=== PATIENT | female | born 1945 | race Caucasian/White ===

== ENCOUNTER 2024-10-05 09:30 | Outpatient (CLI) | payer MEDICARE, SELFPAY ==
--- NOTE | ~2024-10-05 | XR_ITS ---
EXAM/PROCEDURE: XR chest 2V - 10/05/2024 11:30 CDT HISTORY: 79 years old Female with M96.1 - Postlaminectomy syndrome, not elsewhere classified TECHNIQUE: Two view(s) of the chest. COMPARISON: None available. FINDINGS: LUNGS/ PLEURA: Mild vascular congestion, bilateral interstitial and alveolar opacities. HEART/ MEDIASTINUM: Mild cardiomegaly. BONES: No acute osseous abnormality. OTHER: Visualized upper abdomen is unremarkable. IMPRESSION: Mild CHF. Superimposed infection cannot be excluded. Short-term follow-up chest radiograph is recomme nded after appropriate therapy. Reviewed, dictated and finalized at location A. IMPRESSION: Mild CHF. Superimposed infection cannot be excluded. Short-term follow-up chest radiograph is recommended after appropriate therapy.
--- OUTSIDE RECORDS SUMMARY | 2024-10-05 09:40 | XMS_ITS | Referral Summary ---
Author Organization [facility] at [facility] Address [address] [place] [address] Care Team Providers Care Knife Setter Name Role Phone Rosmery Mai MD Primary Care Provider [phone] Encounters Date Type Department Care Team Description 08/12/2024 Telephone [facility] Ophthalmology [address] [place] [phone] Nahid Flores MD 08/12/2024 9:00 AM CDT Office Visit [facility] Ophthalmology [address] [place] [phone] Nahid Flores MD Dacryocystitis, acute, left (Primary Dx) 07/15/2024 1:30 PM CDT Office Visit [facility] Ophthalmology [address] [place] [phone] Supriya Ulloa MD Dacryocystitis, acute, left (Primary Dx) 07/07/2024 7:30 AM CDT - 07/07/2024 9:15 AM CDT Surgery [facility] [address] [place] [phone] Nahid Flores MD DACRYOCYSTORHINOSTOMY 07/07/2024 7:24 AM CDT Anesthesia Event [facility]) [address] [place] [phone] Stefan Byers MD McGowan, Jessica Lynn, NP 07/07/2024 5:33 AM CDT - 07/07/2024 10:04 AM CDT Hospital Encounter [facility] Operating Room [facility] ([facility]) [address] [place] [address] Nahid Flores MD Dacryocystitis, acute, left [H04.322] (Primary Dx) Discharge Disposition: Discharge to home or self care from Last 3 Months Allergies Active Allergy Reactions Criticality Noted Date Comments Enalapril Unknown Remote history, not sure of reaction Lisinopril Cough,Shortness of breath High 02/17/2018 Breathing Difficulty Morphine Hives,Itching Medium 01/03/2016 Hives Prednisone Headache Low Will take if absolutely must Rivaroxaban GI bleeding Low 04/05/2016 Medications albuterol HFA (PROVENTIL HFA,VENTOLIN HFA,PROAIR HFA) 90 mcg/actuation inhalerIndication s:Chronic Obstructive Pulmonary Disease Inhale 1 puff as needed for wheezing or shortness of breath 4 Active atenoloL (TENORMIN) 25 mg tabletIndications :hypertension Take 1 tablet (25 mg total) by mouth 2 (two) times a day Active atorvastatin (LIPITOR) 40 mg tabletIndications :hyperlipidemia Take 1 tablet (40 mg total) by mouth nightly 5 Active bumetanide (BUMEX) 1 mg tabletIndications :Renal Disease with Edema Take 1 tablet (1 mg total) by mouth every other day Active cholestyramine (QUESTRAN) 4 gram packetIndications :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 Take 1 packet (4 g total) by mouth every morning 4 025 Active cyanocobalamin (Vitamin B-12) 100 mcg tabletIndications :Prevention of Vitamin B12 Deficiency Take 10 tablets (1,000 mcg total) by mouth every morning 1 Active empagliflozin (JARDIANCE) 10 mg tabletIndications :Chronic Kidney Disease Take 1 tablet (10 mg total) by mouth every morning 4 Active fluticasone propionate (FLONASE) 50 mcg/actuation nasal sprayIndications: Allergic Rhinitis Administer 1 spray into each nostril every morning Active Trelegy Ellipta 100-62.5-25 mcg inhalerIndication s:Bronchospasm Prevention with COPD Inhale 1 puff every morning 5 Active gabapentin (NEURONTIN) 100 mg capsuleIndication s:Neuropathic Pain Take 1 capsule (100 mg total) by mouth 2 (two) times a day Active HYDROcodone-aceta minophen (NORCO) 5-325 mg per tabletIndications :Pain Take 1 tablet by mouth 2 (two) times a day as needed for pain for pain Active losartan (COZAAR) 50 mg tabletIndications :chronic kidney disease with albuminuria,hyper tension Take 1.5 tablets (75 mg total) by mouth every morning 5 Active montelukast (SINGULAIR) 10 mg tabletIndications :Seasonal Allergic Rhinitis Take 1 tablet (10 mg total) by mouth nightly 5 Active rOPINIRole (REQUIP) 2 mg tabletIndications :Restless Legs Syndrome Take 1 tablet (2 mg total) by mouth 2 (two) times a day 4 Active warfarin (COUMADIN) 3 mg tabletIndications :VTE Prophylaxis,atria l fibrillation Take 1.5 tablets (4.5 mg total) by mouth every evening 4 Active cholecalciferol, vitamin D3, (VITAMIN D3 ORAL)Indications: supplement Take 1 tablet by mouth every other day Active multivitamin tabletIndications :Vitamin Deficiency Prevention Take 1 tablet by mouth every morning Active ibuprofen 200 mg tab/capIndication s:Pain Take 2 tablet/capsule (400 mg total) by mouth every 6 (six) hours as needed for pain Active polyethylene glycol 3350 (MIRALAX ORAL)Indications: constipation Take 1 packet by mouth every morning Active bacitracin-polymy maryanne B (POLYSPORIN) ophthalmic ointment Applied to incision 3 times a day until healed 3.5 g 2 5 Active Additional Information Patient not taking.Reported on 08/12/2024 cephalexin (KEFLEX) 500 mg capsule Take by mouth Active Active Problems Problem Noted Date Diagnosed Date Dacryocystitis, acute, left 06/11/2024 Social History Tobacco Use Types Packs/Day Years Used Date Smoking Tobacco: Former Cigarettes 0.5 31 1 961 - 1992 Smokeless Tobacco: Never Tobacco Cessation:Counseling Given: Not Answered AUDIT-C Answer Date Recorded Frequency of Alcohol Consumption Not on file 07/07/2024 Q2: How many drinks containi ng alcohol do you have on a typical day when you are drinking? Patient does not drink Frequency of Binge Drinking Not on file 06/17 Personal Safety Answer Date Recorded Have you ever been in or are you currently in a harmful physical or emotional relationship or is someone making you feel afraid or unsafe? 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 Gender Identity Not on file Sexual Orientation Not on file Last Filed Vital Signs Vital Sign Reading Time Taken Comments Blood Pressure 152/124 07/07/2024 9:40 AM CDT Pulse 56 07/07/2024 9:40 AM CDT Temperature 36.1 C (97 F) 07/07/2024 9:15 AM CDT Respiratory Rate 12 07/07/2024 9:40 AM CDT Oxygen Saturation 87% 07/07/2024 9:40 AM CDT Inhaled Oxygen Concentration - - Weight 113.4 kg (250 lb) 07/07/2024 7:00 AM CDT Height 162.6 cm (5' 4) 07/07/2024 7:00 AM CDT Body Mass Index 42.91 07/07/2024 7:00 AM CDT Plan of Treatment Not on file Procedures Procedure Name Priority Date/Time Associated Diagnosis Comments DACRYOCYSTORHINOSTOMY 07/07/2024 7:29 AM CDT Dacryocystitis, acute, left PROTIME-INR STAT 07/07/2024 7:22 AM CDT from Last 3 Months Results * (ABNORMAL) Protime-INR (07/07/2024 7:22 AM CDT) PT 13.3(H) 9.7 - 13.0 sec INR 1.23(H) 0.90 - 1.20 [facility] Comment: Interpretive data Oral anticoagulant therapeutic ranges: Venous thromboembolism prophylaxis or treatment: 2.0-3.0 CARDIOLOGY Standard range: 2.0-3.0 High-intensity range: 2.5-3.5 Refer to indication-specific guidelines for appropriate target ranges for prosthetic heart valve replacement. Current interpretive data was last revised on 2019. Blood 07/07/2024 7:2 2 AM CDT 07/07/2024 7:30 AM CDT us Nila Flores NP LAB BLOOD ORDERABLES Fin al Result [facility] Department [place] [address] from Last 3 Months Insurance MEDICARE [facility] MEDICARE [facility] MEDICARE SUPPLEMENT INSURANCE [facility]ICARE [facility] MEDIC[facility] SUPPLEMENT INSURANCE Care Teams Knife Setter Relationship Specialty Start Date End Date Rosmery Mai MD [address] [place] [address] PCP - General Internal Medicine 03/25/24
--- OUTSIDE RECORDS SUMMARY | 2024-10-05 09:40 | XMS_ITS | Clinical Summary ---
Author Organization [facility] Address [address] [place] [address] Care Team Providers Care Assistant Offset Press Operator Name Role Phone Rosmery Mai MD Primary Care Provider [phone] Allergies Active Allergy Reactions Criticality Noted Date [...] Date Diagnosed Date Dacryocystitis, acute, left 06/11/2024 Encounters Date Type Department Care Team Description 08/12/2024 9:00 AM CDT Office Visit [facility] Ophthalmology [address] [place] [phone] Nahid Flores MD Dacryocystitis, acute, left (Primary Dx) 08/12/2024 Telephone [facility] Ophthalmology [address] [place] [phone] Nahid Flores MD 07/15/2024 1:30 PM CDT Office Visit [facility] Ophthalmology [address] [place] [phone] Supriya Ulloa MD Dacryocystitis, acute, left (Primary Dx) 07/07/2024 7:30 AM CDT - 07/07/2024 9:15 AM CDT Surgery [facility] ([facility]) [address] [place] [phone] aNhid Flores MD DACRYOCYSTORHINOSTOMY 07/07/2024 7:24 AM CDT Anesthesia Event [facility] ([facility]) [address] [place] [phone] Stefan Byers MD McGowan, Jessica Lynn, CODY 07/07/2024 5:33 AM CDT - 07/07/2024 10:04 AM CDT Hospital Encounter [facility] ([facility]) [address] [place] [phone] Nahid Flores MD Dacryocystitis, acute, left [H04.322] (Primary Dx) Discharge Disposition: Discharge to home or self care from Last 3 Months Surgical History Surgery Date Site/Laterality Comments KNEE SURGERY 03/18/2014 - 03/17/2015 Bilateral BACK SURGERY 03/18/2015 - 03/17/2016 ERCP multiple LAMINECTOMY 03/18/2012 - 03/17/2013 CHOLECYSTECTOMY 03/18/1975 - 03/17/1976 BILE DUCT EXPLORATION 03/18/2011 - 03/17/2012 COLONOSCOPY 03/18/2012 - 03/17/2013 CATARACT EXTRACTION 03/18/2023 - 03/17/2024 Bilateral 12/2023, 02/2024 EPIDURAL STEROID INJECTION 03/18/2022 - 03/17/2023 BREAST MASS EXCISION 03/18/2019 - 03/17/2020 LASER ABLATION 03/18/2018 - 03/17/2019 DACRYOCYSTORHINOPLASTY 07/07/2024 Left DACRYOCYSTORHINOSTOMY (Left: Eye) 07-07-2024 Medical History Medical History Date Comments Motion sickness Family History Medical History Relation Name Comments Anesthesia problems Neg Hx Social History Tobacco Use Types Packs/Day Years [...] on file 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 Gender Identity Not on file Sexual Orientation Not on file Obstetrics History Last Filed Vital Signs Vital Sign Reading [...] 07/07/2024 7:00 AM CDT Plan of Treatment Health Maintenance Due Date Last Done Comments Depression Screening 1945 Hepatitis B Screening 05/23/1961 Well Visit 65+ 05/23/2008 Osteoporosis Screening-Bone Density Scan 09/15/2021 09/16/2019 Covid-19 Vaccine (6 - 2023-2 5 season) 2023 12/07/2022, 03/13/2022, 03/15/2021, Additional history exists Influenza Vaccine (#1) 2024 , 01/14/2023, 11/22/2022, Additional history exists Fall Risk Assessment 07/07/2025 07/07/2024 DTaP/Tdap/Td Vaccine (2 - Td or Tdap) 11/03/2033 11/04/2023 Pneumococcal vaccine 65+ Completed 02/15/2020, 01/17 Zoster Vaccine Completed 12/13/2021, 10/09/2021 Procedures Procedure Name Priority Date/Time Associated Diagnosis Comments DACRYOCYSTORHINOSTOMY 07/07/2024 7:29 AM CDT Dacryocystitis, acute, left PROTIME-INR STAT 07/07/2024 7:22 AM CDT from Last 3 Months Results * (ABNORMAL) Protime-INR (07/07/2024 7:22 AM CDT) PT 13.3(H) 9.7 - 13.0 sec INR 1.23(H) 0.90 - 1.20 [facility] Comment: Interpretive data Oral anticoagulant therapeutic ranges: Venous thromboembolism prophylaxis or treatment: 2.0-3.0 CARDIOLOGY Standard range: 2.0-3.0 High-intensity range: 2.5-3.5 Refer to indication-specific guidelines for appropriate target ranges for prosthetic heart valve replacement. Current interpretive data was last revised on 2019. Blood 07/07/2024 7:22 AM CDT 07/07/2024 7:30 AM CDT us Nila Flores NP LAB BLOOD ORDERABLES Fin al Result [facility] Department [place] [address] from Last 3 Months Insurance MEDICARE [facility] MEDICARE [employer]IG[employer] MEDICARE SUPPLEMENT INSURANCE MEDICARE [facility] MEDICARE SUPPLEMENT INSURANCE Care Teams Assistant Offset Press Operator Relationship Specialty Start Date End Date Rosmery Mai MD [address] [place] [address] PCP - General Internal Medicine 03/25/24
--- NOTE | 2024-10-05 11:13 | ECG_ITS ---
Test Date: 2024-10-05 11:27:58 Measurements Intervals [place] Rate: 49 P: 0 DC: 0 QRS: -62 QRSD: 102 T: -3 QT: 478 QTc: 433 Interpretive Statements ATRIAL FIBRILLATION WITH SLOW VENTRICULAR RESPONSE MARKED LEFT AXIS DEVIATION [QRS AXIS < -30] POSSIBLE ANTERIOR MYOCARDIAL INFARCTION [30 ms Q WAVE IN V3/V4, OR R < 0.2 mV IN V4], PROBABLY OLD WARNING: DATA QUALITY MAY AFFECT INTERPRETATION No previous ECG available for comparison Electronically Signed On 10-05-2024 11:35:47 CDT by Rich Magallanes M.D.
[2024-10-05 12:06] LABS: Hematocrit 41.9 % (37.0-47.0); Hemoglobin 12.8 g/dL (12.0-15.0); Mean Corpuscular HGB Conc 30.5 g/dl (32-36); Mean Corpuscular Hemoglobin 30.3 pg (26-34); Mean Corpuscular Volume 99.1 fl (80-100); Platelet Count Result 203 k/mm3 (150-375); Red Blood Count 4.23 M/mm3 (4.2-5.4); White Blood Count 7.8 K/mm3 (4.5-10.0)
[2024-10-05 12:11] LABS: Add Urine Microscopic? YES; Appearance Urine Clear (Clear); Glucose Urine UA 2+ mg/dL (Negative); Leukocyte Esterase Ur 1+ LEU/UL (Negative); Nitrate Urine Negative (Negative); Non Pathogenic Casts 0-2; Specific Grav Ur 1.013 (1.001-1.035)
[2024-10-05 12:27] LABS: INR 2.4; Prothrombin Time 25.3 Seconds (11.1-14.7)
[2024-10-05 12:28] LABS: Partial Thromboplastin Time 35.0 Seconds (22.3-36.8)
[2024-10-05 12:30] LABS: Anion Gap 10 mmol/L (4-12); Blood Urea Nitrogen 23 mg/dL (7-17); Calcium 8.6 mg/dL (8.4-10.2); Carbon Dioxide 25 mmol/L (22-30); Chloride 100 mmol/L (98-107); Estimated Glomerular Filt Rate 37; Glucose 102 mg/dL (65-110); Potassium 3.7 mmol/L (3.4-5.0); Sodium 135 mmol/L (137-145)
== END 2024-10-05 09:31 | disposition home or self-care (01) ==
LOC: ANHSURGERY 09:37
PROVIDERS: PCP Family Medicine; Visit Provider Neurological Surgery
DX: M96.1 Postlaminectomy syndrome, not elsewhere classified (principal)
CPT/HCPCS: 36415; 71046; 80048; 81001; 85027; 85610; 85730; 93005

== ENCOUNTER 2024-10-14 00:33 | Day surgery (SDC) | payer MEDICARE, SELFPAY ==
[2024-10-05 10:18] VITALS: BP 159/88; PULSE 84; RESP 16; TEMP 37; O2SAT 96; BMI 42.5
--- NOTE | 2024-10-05 10:48 | PC.NURSE ---
Report to the Outpatient Waiting Room, entrance under the green pavilion located off [facility], at time ___9:30AM___ on date ___10/14/24____. Planned Procedure Time: ____11:30AM___.? Time changes happen often and if your time is changed the preop area will call you the afternoon before. - You and your visitor will be asked to self-screen and do not enter if you have any COVID symptoms. Please call surgeon if you need to reschedule. - A mask is optional within the hospital at this time. Patients may have clear liquids (water, carbonated beverages, clear teas, apple juice) until 3 hours prior to surgery (8:30AM) with a maximum of 20 ounces. - No food from midnight until time of surgery and no smoking, or chewing tobacco (or any form of nicotine). No chewing gum, candy or mints. Take only the following medications with a SIP of water on the morning of surgery: ___ATENOLOL, GABAPENTIN, & TRELEGY ELLIPTA INHALER. MAY USE ALBUTEROL INHALER OR TAKE HYDROCODONE NEEDED. DO NOT STOP ANY OF YOUR OTHER PRESCRIPTION MEDICATIONS PRIOR TO SURGERY EXCEPT THE FOLLOWING Hold all vitamins and supplements for 3 days per anesthesiologist.- LAST DOSE 10/10/24 Medications to discontinue per physician ____HOLD WARFARIN 5 DAYS PRE-OP PER DR COOPER- LAST DOSE 10/08/24 HOLD NSAIDS(IBUPROFEN) 7 DAYS PRE-OP PER DR COOPER. Please no make-up, nail kazakh, hairspray, perfume, deodorant, or body powder the day of surgery.? No jewelry (including any body piercings) or valuables the day of surgery, leave them at home.? Please take a shower or bath the night before, or the morning of, surgery with an antibacterial soap.? Wear comfortable, loose fitting clothing.? - Jewelry must be removed prior to entering the operating room.? Rings and piercings that are not removed may be cut off. - The hospital will not accept responsibility for valuables.? - Please leave all valuables, including medications, at home the day of surgery. If you are going home after surgery, a licensed truck driver salesperson must drive you home.? - NO public transportation without another adult if you receive anesthesia. - We recommend that an adult stay with you for 24 hours following discharge. - We also recommend that you do not drive, make important decision, drink alcoholic beverages, or take any drugs that were not prescribed by your health care provider for at least 24 hours after your discharge time. Follow any additional instructions given to you from your surgeon. Telephone instructions given to ____PATIENT and asked if any additional questions and then verbalized understanding. Patient advised to call surgeon office or pre surgery nurse liaison [phone] if any additional questions.
[2024-10-14] VITALS (9 sets, daily range): BP systolic 102–180; BP diastolic 60–111; PULSE 55–72; RESP 12–20; TEMP 36.2–36.4; O2SAT 96–100
--- NOTE | ~2024-10-14 | XR_ITS ---
INTRAOPERATIVE FLUOROSCOPY: CLINICAL HISTORY: 79 years old Female; T 10 LAMINOTOMY FOR PLACEMENT OF SPINAL STIMULATOR PROCEDURE COMMENTS: Limited intraoperative fluoroscopy of the thoracolumbar spine was performed. CUMULATIVE DOSE: 27.4 mGy FLUOROSCOPY TIME: 26 seconds FINDINGS/IMPRESSION: Please refer to operative note for further details. Reviewed, dictated and finalized at location A.
--- OUTSIDE RECORDS SUMMARY | 2024-10-14 00:35 | XMS_ITS | Referral Summary ---
Author Organization [facility] Address [address] [place] [address] Care Team Providers Care Perinatal Nurse Name Role Phone Rosmery Mai MD Primary Care Provider [phone] Encounters Date Type Department Care Team Description 08/12/2024 Telephone [facility] Ophthalmology [address] [place] [address] [place] [phone] Nahid Flores MD 08/12/2024 9:00 AM CDT Office Visit [facility] Ophthalmology [address] [place] [phone] Nahid Flores MD Dacryocystitis, acute, left (Primary Dx) 07/15/2024 1:30 PM CDT Office Visit [facility] Ophthalmology [address] [place] [phone] Supriya Ulloa MD Dacryocystitis, acute, left (Primary Dx) from Last 3 Months Allergies Active Allergy [...] on file 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
--- OUTSIDE RECORDS SUMMARY | 2024-10-14 00:35 | XMS_ITS | Clinical Summary ---
Author Organization [facility] Address [address] [place] [address] Care Team Providers Care River Guide Name Role Phone Rosmery Mai MD Primary Care Provider [phone] Allergies Active Allergy Reactions Criticality Noted Date [...] Description 08/12/2024 9:00 AM CDT Office Visit [facility] Ophthalmology [address] [place] [phone] Nahid Flores MD Dacryocystitis, acute, left (Primary Dx) 08/12/2024 Telephone [facility] Ophthalmology [address] [place] [phone] Nahid Flores MD 07/15/2024 1:30 PM CDT Office Visit [facility] Ophthalmology [address] [place] [phone] Supriya Ulloa MD Dacryocystitis, acute, left (Primary Dx) from Last 3 Months Surgical History Surgery [...] file 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 Gender Identity Not on file Sexual Orientation [...] Screening-Bone Density Scan 09/15/2021 09/16/2019 Covid-19 Vaccine (2023-2 5 season) 2023 12/07/2022, 03/13/2022, 03/15/2021, Additional history exists Influenza Vaccine (#1) 2024 , 01/14/2023, 11/22/2022, Additional history exists Fall Risk Assessment 07/07/2025 07/07/2024 DTaP/Tdap/Td Vaccine (2 - Td or Tdap) 11/03/2033 11/04/2023 Pneumococcal vaccine 65+ Completed 02/15/2020, 01/17 Zoster Vaccine Completed 12/13/2021, 10/09/2021 Insurance MEDICARE [facility] MEDICARE [employer]IG[employer] MEDICARE SUPPLEMENT INSURANCE MEDICARE [facility] MEDICARE SUPPLEMENT INSURANCE Care Teams River Guide Relationship Specialty Start Date End Date Rosmery Mai MD [address] [address] PCP - General Internal Medicine 03/25/24
[2024-10-14 10:04] LABS: INR 1.2; Prothrombin Time 15.1 Seconds (11.1-14.7)
--- NOTE | 2024-10-14 11:19 | P.PNAN_ITS ---
Anes - Initial Pre Proc Eval Procedure: Operation Date: 10/14/24 11:30 Proposed Procedures p T 10 Laminotomy for Placement of Spinal Cord Stimulator - Erika Mcbride MD Date/Time: 10/14/24 11:19 Surgeon: Erika Mcbride MD Pre Op Diagnosis: post laminectomy syndrome Patient Data Age: 79 Gender: F Height: 1.63 m Weight: 111.2 kg Last Vital Signs Temp 36.4 C 10/14/24 09:42 Pulse 55 L 10/14/24 09:42 Resp 18 10/14/24 09:42 BP 162/83 H 10/14/24 09:42 Pulse Ox 96 10/14/24 09:42 O2 Del Method Room Air 10/14/24 09:42 Allergies Allergy/AdvReac Type Severity Reaction Status Date / Time lisinopril Allergy Unknown Verified 10/14/24 09:50 morphine Allergy Rash, Verified 10/14/24 09:50 SWELLING prednisone AdvReac Headache Verified 10/14/24 09:50 Home Medications ?Medication ?Instructions ?Recorded ?Confirmed ?Type albuterol 90 mcg/actuation aerosol 90 mcg inhalation Q4-6H PRN 10/01/24 10/14/24 History inhaler shortness of breath or wheezing atenolol 25 mg tablet 25 mg PO BID 10/01/24 10/14/24 History atorvastatin 40 mg tablet (Lipitor) 40 mg PO DAILY 10/01/24 10/14/24 History bumetanide 1 mg tablet 1 mg PO EVERY OTHER DAY 10/01/24 10/14/24 History cholestyramine 4 gram oral powder 4 g PO DAILY 10/01/24 10/05/24 History empagliflozin 10 mg tablet 10 mg PO DAILY 10/01/24 10/14/24 History famotidine 20 mg tablet 20 mg PO Q12H PRN indigestion 10/01/24 10/05/24 History fluticasone fur. 100 mcg-umeclid 1 inh inhalation DAILY 10/01/24 10/14/24 History 62.5 mcg-vilant 25 mcg inhalat.powder (Trelegy Ellipta) fluticasone propionate 50 1 spray intranasal DAILY 10/01/24 10/14/24 History mcg/actuation nasal spray,suspension gabapentin 100 mg capsule 100 mg PO BID 10/01/24 10/14/24 History hydrocodone 5 mg-acetaminophen 325 1 tablet PO Q8H PRN pain 10/01/24 10/14/24 History mg tablet losartan 50 mg tablet 75 mg PO DAILY 10/01/24 10/14/24 History montelukast 10 mg tablet 10 mg PO QHS 10/01/24 10/14/24 History omega 4-bzz-jma-fish oil 1,000 mg 1 cap PO DAILY 10/01/24 10/14/24 History (120 mg-180 mg) capsule (Fish Oil) ropinirole 2 mg tablet 2 mg PO BID 10/01/24 10/14/24 History warfarin 3 mg tablet 6 mg PO DIRECTED 10/01/24 10/14/24 History cholecalciferol (vitamin D3) 25 1,000 unit PO EVERY OTHER DAY 10/05/24 10/14/24 History mcg (1,000 unit) capsule cyanocobalamin (vitamin B-12) 100 100 mcg PO EVERY OTHER DAY 10/05/24 10/14/24 History mcg tablet ibuprofen 200 mg capsule 400 mg PO TID PRN pain 10/05/24 10/14/24 History multivitamin (Daily Multi-Vitamin 1 tablet PO DAILY 10/05/24 10/14/24 History tablet) Laboratory Tests 10/14/24 09:30 PT 15.1 H Seconds (11.1-14.7) INR 1.2 Patient hx anesthesia problems: none Family hx anesthesia problems: none Results Review: All pre-operative results and documents have been reviewed as part of the pre- operative evaluation. [facility] Past Medical History Medical History HTN (hypertension) Afib COPD (chronic obstructive pulmonary disease) Arthritis Family History Family History Mother Hypertension Social History Social History Smoking status: Former smoker Smoking end date: 03/18/91 Alcohol intake: never Substance use: never Substance use type: does not use Anes - Eval Final PreProcedure Day of Procedure 10/14/24 11:19 Patient weight: morbidly obese Heart: regular rate and rhythm Lungs: decreased breath sounds Airway: Mallampati scale class II Neurological: alert and oriented Last oral intake: >/= 8 hours ASA classification: III Emergent: no Anesthetic plan: proceed Anesthesia type and monitoring: general ETT and standard monitoring Results Review: All pre-operative results and documents have been reviewed as part of the pre- operative evaluation. Informed Consent: The patient's anesthetic plan and its attendant risks and benefits were discussed with the patient/family/POA. Questions were solicited and answers provided to the satisfaction of the patient/family/POA.
--- NOTE | 2024-10-14 11:23 | WPDHPUPDATE1 ---
History and Physical Update Update Date/Time: 10/14/24 11:23 History and Physical has been reviewed, including an updated exam of the patient. There are NO changes in the patient's condition. Risks, benefits, and alternatives have been discussed and questions answered. Patient agrees to proceed with procedure.
[2024-10-14] MEDS: ceFAZolin 2 GM in SODIUM CHLORIDE 0.9% IV 50 ML 100 ML IVPB (11:47)
[2024-10-14] MEDS: VANCOMYCIN HCL 1,000 MG VIAL 1000 MG TOPICAL (12:25)
[2024-10-14] MEDS: BUPIVACAINE/EPINEPHRINE 0.5% 50 ML VIAL 30 ML INFILTRATE (12:26)
[2024-10-14] MEDS: LACTATED RINGERS 1,000 ML 30 ML IV CONT ×2 (13:59)
--- NOTE | 2024-10-14 14:04 | P.OPB_ITS ---
Procedure Note - Brief Procedure Note - Brief Date of procedure: 10/14/24 post laminectomy syndrome Post-op diagnosis: Same Procedure performed: T10 laminotomy for placement of spinal cord stimulator Surgeon: Erika Mcbride MD Diamond Picker: Guero Anesthesia: GETA Findings: SCS placed without significant difficulty Drains: No Packing: No Pathology: None sent Complications: None Condition: Stable Disposition: PACU
--- NOTE | 2024-10-14 14:11 | P.OP_ITS ---
Procedure Note - Detailed Date of Procedure 10/14/24 Pre-op Diagnosis post laminectomy syndrome Post-op Diagnosis Same Procedure Performed T9, T10 laminotomies for placement of spinal cord stimulator Placement of right gluteal spinal cord stimulator generator Use of fluoroscopy Surgeon Erika Mcbride MD Regulatory Affairs Associate Guero Anesthesia General Description of Procedure The patient was brought to the OR where general anesthesia was induced. The patient was turned prone onto the OR table with Abhinav frame. All pressure points were padded. C-arm was used to plan the level of the thoracic incision. The planned right gluteal incision was marked. The surgical site was prepped and draped in usual sterile fashion. Perioperative antibiotics were given. Local anesthesia was injected into the planned incisions. A 10-blade scalpel was used to open the planned right gluteal incision, and a analy vie was used to create a subcutaneous pocket inferiorly. The pocket was packed with a wet Raytec. Next, the thoracic incision was opened with the scalpel, and the soft tissue was dissected with the bovie. The laminae were exposed bilaterally at T9 and T10. This was confirmed with the C-arm. On xray, it was difficult to determine the location of the T12 rib. A laminotomy was performed at the presumed level of T10 with the Leksell, high-speed drill, and kerrisons. The laminotomy opening was widened laterally. Cranially, a curved currette, Woodsen, and 3-penfield were used to separate the dura from the laminae. The paddle stimulator was then placed into the epidural space. The C-arm was brought in to visualize placement. After multiple xrays, we were better able to visualize the T12 rib and determined the location of the stimulator was just above the T9-10 disc space. In order to incorporate the T9-10 disc space into the area of stimulation, we made a second laminotomy at the superior aspect of T10. We passed the stimulator which eventually achieved midline placement across the desired levels. Anchors were placed over the leads which were attached to the muscle with a 2-0 silk suture. The leads were tunneled to the gluteal incision. The leads were connected to the generator which was then placed into the gluteal pocket. The generator was secured with a 2-0 silk suture. All incisions were irrigated copiously. Hemostasis was ensured in the thoracic incision with the bipolar and floseal. The fascia was closed with 0 vicryl. The dermis was closed with 2-0 and 3-0 vicryl. The dermis at the generator site was closed with 2-0 vicryl. The skin was closed at both incisions with 4-0 monocryl. Dermabond was then placed. The patient was returned supine, extubated, and transferred to PACU. Billing codes: 68034, 03745 Estimated Blood Loss 25 Drains No Packing No Pathology None sent Complications None Condition Stable Disposition PACU [facility] Billing Surgery - Charge Forward: Surgery Billing
--- NOTE | 2024-10-14 14:16 | SUR.PHASEI ---
1416 - device rep at bedside.
--- NOTE | 2024-10-14 14:37 | SUR.PHASEI ---
1437 - dr tejada at bedside assessing pt
[2024-10-14] MEDS: oxyCODONE HCL (*CRX) 5 MG TAB IR PO (15:33)
--- NOTE | 2024-10-14 16:06 | SUR.PHASEII ---
1553: Spoke w/ Dr. Oates in regards to patient's elevated BP. No further treatment at this time. Patient is to follow-up with Primary if it continues to be elevated.
== END 2024-10-14 16:30 | disposition home or self-care (01) ==
PROVIDERS: PCP Family Medicine; Visit Provider Neurological Surgery
PROC: (CPT 63685; principal; 2024-10-14 11:30)
DX: M96.1 Postlaminectomy syndrome, not elsewhere classified (principal); I10 Essential (primary) hypertension; J44.9 Chronic obstructive pulmonary disease, unspecified; I48.91 Unspecified atrial fibrillation; E78.5 Hyperlipidemia, unspecified; Z79.51 Long term (current) use of inhaled steroids; Z79.84 Long term (current) use of oral hypoglycemic drugs; Z79.891 Long term (current) use of opiate analgesic; Z79.01 Long term (current) use of anticoagulants; Z79.1 Long term (current) use of non-steroidal anti-inflammatories (NSAID); Z98.1 Arthrodesis status; Z87.891 Personal history of nicotine dependence; Z86.718 Personal history of other venous thrombosis and embolism
CPT/HCPCS: 63685; 63655; 36415; 85610; 99199; J0690; A9270; C1778; J0330; J2003; J2405; J2704; J3010; J3373; J7120

== ENCOUNTER 2024-10-18 00:08 | Observation (INO) | payer MEDICARE, SELFPAY ==
[2024-10-18] VITALS (32 sets, daily range): BP systolic 144–190; BP diastolic 74–108; PULSE 52–67; RESP 12–19; TEMP 36.4–36.7; O2SAT 90–97; BMI 42.3
--- NOTE | ~2024-10-18 | CT_ITS ---
EXAMINATION: CTA abdomen pelvis DATE: 10/18/2024 02:55 INDICATION: diffuse abd pain, rct nerve stimulator; off warfar TECHNIQUE: Computed tomography angiography of the abdomen and pelvis was performed with 100 mL Omnipa que-350 intravenous contrast in the arterial phase. Automated exposure control and iterative reconstr uction technique were employed. The dose-length product was 1426.20 mGy-cm. COMPARISON: CT renal 09/25/2004. FINDINGS: Lower thorax: Multiple sub-6 mm pulmonary nodules. Bibasilar scar/atelectasis. Cardiomegaly. Coronary artery, and aortic valve calcification. Dilation of the descending thoracic aorta to 3.2 cm, with at herosclerotic calcification. Liver: Enlarged. Mild border nodularity. Biliary/Gallbladder: Gallbladder is absent. Mild intrahepatic and extrahepatic bile duct dilation, pr esumably secondary to cholecystectomy. Pancreas: Atrophy. Spleen: Normal. Adrenals:Indeterminate density 1.3 cm left adrenal nodule Kidneys: Status post right nephrectomy. Left cortical scarring. No obstructing calcification, hydrone phrosis, or suspicious mass in the left kidney GI tract: Small hiatal hernia. No small or large bowel dilation. Normal appendix. Diverticulosis with out diverticulitis. Mesentery/Peritoneum: No ascites, mass, or free air. Retroperitoneum: No mass. Atherosclerotic calcifications of intra-abdominal arterial vessels. No abdo malgorzata aortic aneurysm or dissection. No severe branch vessel stenosis. 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 IVC filter. Pelvis: Distended urinary bladder. Absent uterus. Bilateral ovaries not confidently identified. 2.1 c m indeterminate density right pelvic cyst, likely representing the adnexal cyst described in the prio r study, which has decreased in size and is of doubtful clinical significance. Soft Tissues: Small uncomplicated fat-containing umbilical hernia. Lower abdominal wall varices. Mild diffuse body wall edema. Right posterior stimulator pack, leads terminating over the lower thoracic spine. Bones: No acute osseous finding. IMPRESSION: Multiple sub-6 mm pulmonary nodules, the patient is at high risk consider an optional CT in 12 months . Cardiomegaly. Mild thoracic aortic ectasia. Hepatomegaly. Findings suggestive of cirrhosis. Indeterminate 1.3 cm left adrenal nodule, probably benign, consider 12 month follow-up adrenal CT as the patient is at high risk. Lower anterior abdominal wall varices. Body wall edema. Results, which included preliminary report discrepancies reported telephonically to Dr. Man by Dr. Weaver at 6:22 PM on 10/18/2024. Reviewed, dictated and finalized at location [facility]. IMPRESSION: Multiple sub-6 mm pulmonary nodules, the patient is at high risk consider an op tional CT in 12 months. Cardiomegaly. Mild thoracic aortic ectasia. Hepatomegaly. Findings suggestive of cirrhosis. Indeterminate 1.3 cm left adrenal nodule, probably benign, consider 12 month fo llow-up adrenal CT as the patient is at high risk. Lower anterior abdominal wall varices. Body wall edema. Results, which included preliminary report discrepancies reported telephonicall y to Dr. Man by Dr. Weaver at 6:22 PM on 10/18/2024.
--- OUTSIDE RECORDS SUMMARY | 2024-10-18 00:11 | XMS_ITS | Referral Summary ---
Author Organization [facility] Address [address] [place] [address] Care Team Providers Care Dip Lube Operator Name Role Phone Rosmery Mai MD Primary Care Provider [phone] Encounters Date Type Department Care Team Description 08/12/2024 Telephone [facility] Ophthalmology [address] [place] [address] [address] [place] [phone] Nahid Flores MD 08/12/2024 9:00 AM CDT Office Visit [facility] Ophthalmology [address] [place] [address] Nahid Flores MD Dacryocystitis, acute, left (Primary Dx) from [...] g total) by mouth every morning 4 Active cyanocobalamin (Vitamin B-12) 100 mcg tabletIndications [...] a day until healed 3.5 g 2 Active Additional Information Patient not taking.Reported on [...] on file Legal Sex Female 8:54 AM DIRECTOR WATER AND WASTE SERVICES Gender Identity Not on file Sexual Orientation [...] Not on file Insurance MEDICARE [facility] MEDICARE [employer] MEDICARE SUPPLEMENT INSURANCE MEDICARE [facility] MEDICARE SUPPLEMENT INSURANCE Care Teams Dip Lube Operator Relationship Specialty Start Date End Date Rosmery Mai MD [address] [place] [address] PCP - General Internal Medicine 03/25/24
--- OUTSIDE RECORDS SUMMARY | 2024-10-18 00:11 | XMS_ITS | Clinical Summary ---
Author Organization [facility] Address [address] [place] [address] Care Team Providers Care Joint Maker Machine Name Role Phone Rosmery Mai MD Primary Care Provider [phone] Allergies Active Allergy Reactions Criticality Noted Date [...] Description 08/12/2024 9:00 AM CDT Office Visit [facility] Ophthalmology [address] [address] Nahid Flores MD Dacryocystitis, acute, left (Primary Dx) 08/12/2024 Telephone [facility] Ophthalmology [address] [address] Nahid Flores MD from Last 3 Months Surgical History Surgery [...] file Legal Sex Female 8:54 AM DIRECTOR PAYER Gender Identity Not on file Sexual Orientation [...] Zoster Vaccine Completed 12/13/2021, 10/09/2021 Insurance MEDICARE [facility] MEDICARE CIG MEDICARE SUPPLEMENT INSURANCE MEDICARE [facility] MEDICARE SUPPLEMENT INSURANCE Care Teams Joint Maker Machine Relationship Specialty Start Date End Date Rosmery Mai MD [facility] [facility] [place] [id number] PCP - General Internal Medicine 03/25/24
[2024-10-18 00:53] LABS: Hematocrit 41.1 % (37.0-47.0); Hemoglobin 12.9 g/dL (12.0-15.0); Immature Granulocyte Percent A 0.6 % (0-0.5); Lymphocytes Absolute Auto 1.24 K/mm3 (0.9-3.2); Mean Corpuscular HGB Conc 31.4 g/dl (32-36); Mean Corpuscular Hemoglobin 30.4 pg (26-34); Mean Corpuscular Volume 96.9 fl (80-100); Nucleated Red Blood Cells Absolute Auto 0.000 K/mm3 (0.0-0.012); Nucleated Red Blood Cells Perc 0.0 % (0.0-0.2); Platelet Count Result 204 k/mm3 (150-375); Red Blood Count 4.24 M/mm3 (4.2-5.4); White Blood Count 9.8 K/mm3 (4.5-10.0)
[2024-10-18] MEDS: HYDROmorphone HCL INJ (*CRX) 2 MG/ML VIAL 0.5 MG IV PUSH ×2 (00:53→03:37)
--- OUTSIDE RECORDS SUMMARY | 2024-10-18 01:22 | XMS_ITS | Encounter Summary ---
Author Organization [facility] Address [facility] [place] [address] Care Team Providers Care Electronics Processing Supervisor Name Role Phone Nguyễn Rice MD Unavailable [phone] Jill Nesbitt CUTTING AND CREASING PRESS OPERATOR Primary Care Provider Unav Petr Marie MD Unavailable [phone] Koby Moffett MD Unavailable Nivia Ag RN Unavailable [phone] Mirela Mai MD Primary Care Provider [phone] Encounter Details Date Type Department Care Team (Late st Contact Info) Description 03/21/2017 Abstract [facility] [address] [place] [address] , Generic Conversion, Social History Tobacco Use Types Packs/Day Years Used Date Smoking Tobacco: Former Smokeless Tobacco: Never Comments:quit in 1991 Alcohol Use Standard Drinks/Week Comments No 0 (1 standard drink = 0.6 oz pur e alcohol) Comments Unknown Sex and Gender Information Value Date Recorded Sex Assigned at Female 06/10/2018 6:40 PM CDT Legal Sex Female 11:35 PM CDT Gender Identity Female 06/10/2018 6:40 PM CDT Sexual Orientation Straight 08/13/2018 10 :21 AM CDT Occupation Industry Job Start Date Job End Date Not on file Not on file Not on file Not on file documented as of this encounter Plan of Treatment Upcoming Encounters Date Type Department Care Team (Late st Contact Info) Description 11/09/2024 10:30 AM CDT Office Visit [facility] Pulmonology Specialty Clinic [facility] [address] [place] [address] Deejay Hermosillo DO [address] [facility] [address] [place] [address] 11/12/2024 8:20 AM CDT Office Visit [facility] Family & Internal Medicine [facility] [address] [place] [phone] Mirela Mai MD [id number] [place] [address]. [address] [place], [place] [phone] 02/15/2025 11:45 AM CANAL EQUIPMENT MECHANIC Office Visit [facility] [address] [phone] Nguyễn Rice MD [facility]. [address] [place] [address] 06/16/2025 10:30 AM CDT Office Visit [facility] [address] [phone] Dale Beltrán MD [facility]. [address] [place] [address] documented as of this encounter Visit Diagnoses Not on filedocumented in this encounter Additional Health Concerns Infection Onset Date Last Indicated Resolved Time MRSA 10/24/2016 10/24/2016 02/20/2019 9:17 AM CANAL EQUIPMENT MECHANIC COVID-19 Rule Out 11/03/2019 11/03/2019 11/04/2019 8:34 PM CDT COVID-19 Rule Out 03/28/2020 03/28/2020 03/28/2020 7:38 AM CANAL EQUIPMENT MECHANIC COVID-19 Rule Out 09/28/2020 09/28/2020 09/28/2020 4:03 PM CDT COVID-19 Rule Out 11/14/2023 11/14/2023 11/14/2023 11:27 AM CDT COVID-19 Confirmed 11/14/2023 11/14/2023 12:32 AM CDT Respiratory Rule Out 06/22/2024 06/22/2024 025 9:34 AM CDT documented as of this encounter Care Teams Electronics Processing Supervisor Relationship Specialty Start Date End Date Jill Nesbitt NP [facility]. [facility] [address] [place] [address] PCP - General NURSE PRACTITIONER 03/18/17 01/15/21 [place] [address] [facility]. [address] [place] [address] PCP - General FAMILY PRACTICE 01/16/21 Nguyễn Rice MD [facility]. [facility] [address] [place] [address] [place] Supervisor Calibration CARDIOVASCULAR DISEASE 08/17/15 Petr Tyson MD [facility]. [address] [address] Consulting Physician UROLOGY 02/17/19 Koby Moffett MD [address] [place] [address] Referring Physician OTOLARYNGOLOGY 10/23/19 Nivai Ag, RN [address] [place] [address] Speech Language Pathologist (Ambulatory) REGISTERED NURSE 09/28/20 11/03/20 documented as of this encounter
--- OUTSIDE RECORDS SUMMARY | 2024-10-18 01:22 | XMS_ITS | Encounter Summary ---
Author Organization [facility] Address [facility] [place] [address] Care Team Providers Care Automotive Sales Specialist Name Role Phone Nguyễn Rice MD Unavailable [phone] Marcos Oconnor MD Primary Care Provider Unavaila ble Mckenzie Arshad Primary Care Provider Unava ilMckenzie Lundberg APCODY Primary Care Provider Unava ilable Jill Nesbitt [place] Primary Care Provider Unav Petr Marie MD Unavailable [phone] Koby Moffett MD Unavailable Nivia Ag RN Unavailable [phone] Mirela Mai MD Primary Care Provider [phone] Encounter Details Date Type Department Care Team (Late st Contact Info) Description 12/01/2015 Abstract [facility] AT [address] [address] Nguyễn Rice MD [address] [address] Social History Tobacco Use Types Packs/Day Years Used Date Smoking Tobacco: Former Comments Unknown Sex and Gender Information Value Date Recorded Sex Assigned at Female 06/10/2018 6:40 PM CDT Legal Sex Female 11:35 PM CDT Gender Identity Female 06/10/2018 6:40 PM CDT Sexual Orientation Straight 08/13/2018 10 :21 AM CDT documented as of this encounter Plan of Treatment Upcoming Encounters Date Type Department Care Team (Late st Contact Info) Description 11/09/2024 10:30 AM CDT Office Visit [facility] Pulmonology Specialty Clinic [facility] [address] [place] [phone] Deejay Hermosillo DO [address] [facility] [address] [place] [address] 11/12/2024 8:20 AM CDT Office Visit [facility] Family & Internal Medicine [facility] [address] [place] [phone] [place] [address] [facility]. [address] [place], [place] [phone] 02/15/2025 11:45 AM LAMINATION INSPECTOR Office Visit [facility] [address] [place] [phone] Nguyễn Rice MD [facility]. [address] [place], [place] [address] 06/16/2025 10:30 AM CDT Office Visit [facility] [address] [place] [phone] Dale Beltrán MD [facility]. [address] [place], [place] [phone] documented as of this encounter Procedures Procedure Name Priority Date/Time Associated Diagnosis Comments PROTIME (OUTSIDE LAB) Routine 12/01/2015 CBC (OUTSIDE LAB) Routine 12/01/2015 documented in this encounter Results * PROTIME (OUTSIDE LAB) (12/01/2015) PROTIME 26.4 INR 2.2 12/01/2015 [facility] Abstract LAB-OUTSIDE/ABSTRACTED Final Result * CBC (OUTSIDE LAB) (12/01/2015) WBC 7.3 HGB 12.5 HCT 39.2 PLT 284 12/01/2015 [facility] Abstract LAB-OUTSIDE/ABSTRACTED Final Result documented in this encounter Visit Diagnoses Not on filedocumented in this encounter Additional Health Concerns Infection Onset Date Last Indicated Resolved Time MRSA 10/24/2016 10/24/2016 02/20/2019 9:17 AM LAMINATION INSPECTOR COVID-19 Rule Out 11/03/2019 11/03/2019 11/04/2019 8:34 PM CDT COVID-19 Rule Out 03/28/2020 03/28/2020 03/28/2020 7:38 AM LAMINATION INSPECTOR COVID-19 Rule Out 09/28/2020 09/28/2020 09/28/2020 4:03 PM CDT COVID-19 Rule Out 11/14/2023 11/14/2023 11/14/2023 11:27 AM CDT COVID-19 Confirmed 11/14/2023 11/14/2023 12:32 AM CDT Respiratory Rule Out 06/22/2024 06/22/2024 025 9:34 AM CDT documented as of this encounter Care Teams Automotive Sales Specialist Relationship Specialty Start Date End Date Marcos Oconnor MD [address] [place] [address] PCP - General FAMILY PRACTICE 08/17/15 02/26/16 Mckenzie Arshad APNP [address] [place] [address] PCP - General REMOTE SENSING RESEARCH SCIENTIST 03/18/16 03/17/17 Mckenzie Arshad APNP [address] [place] [address] PCP - General 02/27/16 03/17/16 Jill Nesbitt NP [facility]. [address] [address] PCP - General NURSE PRACTITIONER 03/18/17 01/15/21 [place] [address] [address] [place] [address] PCP - General FAMILY PRACTICE 01/16/21 Nguyễn Rice MD [facility]. [address] [address] [employer] Se[employer] Clerk CARDIOVASCULAR DISEASE 08/17/15 Petr Tyson MD [address] [address] Consulting Physician UROLOGY 02/17/19 Koby Moffett MD [address] [place] [address] [place] [address] Referring Physician OTOLARYNGOLOGY 10/23/19 Nivia Ag, RN [address] [place] [address] Map Drafter (Ambulatory) REGISTERED NURSE 09/28/20 11/03/20 documented as of this encounter
--- OUTSIDE RECORDS SUMMARY | 2024-10-18 01:22 | XMS_ITS | Encounter Summary ---
Author Organization [facility] Address [facility] [place] [address] Care Team Providers Care Manager Entry Name Role Phone Nguyễn Rice MD Unavailable [phone] Petr Tyson MD Unavailable [phone] Koby Moffett MD Unavailable Mirela Mai MD Primary Care Provider [phone] Reason for Visit * Reason Comments Procedure (SCAN) Encounter Details Date Type Department Care Team (Late Contact Info) Description 10/14/2024 Scan HEALTH INFO [facility] Scanned, Doc [facility] Procedure (SCAN) Social History Tobacco Use Types Packs/Day Years Used Date Smoking Tobacco: Former Cigarettes 967 - 07/17/1991 Smokeless Tobacco: Never Comments:former smoker Alcohol Use Standard Drinks/Week Comments Not Currently 0 (1 standard drink = 0.6 oz pur e alcohol) rarely AUDIT-C Answer Date Recorded Q1: How often do you have a drink containing alc ohol? Never 10/19/2019 Average Number of Drinks Not on file 020 Frequency of Binge Drinking Not on file 05/2019 PHQ-2 Answer Date Recorded Patient Health Questionnaire-2 Score 1 04/16/2024 Comments No Sex and Gender Information Value Date Recorded Sex Assigned at Female 06/10/2018 6:40 PM CDT Legal Sex Female 11:35 PM CDT Gender Identity Female 06/10/2018 6:40 PM CDT Sexual Orientation Straight 08/13/2018 10 :21 AM CDT Occupation Industry Job Start Date Job End Date Not on file Not on file Not on file Not on file documented as of this encounter Functional Status * RETIRED Are you deaf or do you have serious difficulty hearing Answer Date of Assessment Author Status No 09/30/2020 11:00 AM CDT Acti ve * RETIRED Are you blind or do you have serious difficulty seeing, even when wearing glasses? Answer Date of Assessment Author Status No 09/30/2020 11:00 AM CDT Acti ve * Do you have serious difficulty walking or climbing stairs? Answer Date of Assessment Author Status No 09/30/2020 11:00 AM CDT Ximena Pina RN Active * Do you have difficulty dressing or bathing? Answer Date of Assessment Author Status No 09/30/2020 11:00 AM CDT Ximena Pina RN Active * Because of a physical, mental, or emotional condition, do you have difficulty doing errands alone such as visiting a doctor's office or shopping? Answer Date of Assessment Author Status No 09/30/2020 11:00 AM CDT Ximena Pina RN Active documented as of this encounter Mental Status * Because of a physical, mental, or emotional condition, do you have serious difficulty concentrating, remembering, or making decisions? Answer Entry Date Author Status No 09/30/2020 11:00 AM CDT Ximena Pina RN Active documented in this encounter Plan of Treatment Upcoming Encounters Date Type Department Care Team (Late st Contact Info) Description 11/09/2024 10:30 AM CDT Office Visit [facility] Pulmonology Specialty Clinic - [address] [address] Deejay Hermosillo DO [address] [facility] [address] [place] [address] 11/12/2024 8:20 AM CDT Office Visit [facility] Family & Internal Medicine [address] [address] [place] [address] [facility] [address] [place] [address] 02/15/2025 11:45 AM FLOODPLAIN MANAGER Office Visit [facility] [address] [place] [phone] Nguyễn Rice MD [facility]. [address] [place], [place] [phone] 06/16/2025 10:30 AM CDT Office Visit [facility] [address] [place] [phone] Dale Beltrán MD [facility]. [address] [place], [place] [phone] documented as of this encounter Goals Goal Patient Goal Type Associated Problems Recent Progress Patient-Stated? Author Safety Patient/family will have appropriate support at home upon discharge General No Kamille Haynes RN Establish Plan for Symptom Monitoring General On track( 021 3:37 PM CDT) Nivia Hamilton, RN Note: 10/04/20: Patient monitoring s/s. Denies fever, chills or pain today. Encouraged patient to call PCP office at the onset of changes. 10/11/20: Patient monitoring s/s. Denies fever, chills and stated abdominal pain has let up some. Encouraged patient to call PCP office at the onset of changes. 11/04: educated patient on signs/symptoms of urinary tract infection, signs/symptoms of bleeding to report. Monitor - able to maintain pain control General Nivia Hamilton, RN Note: 10/04/20: Patient denies issues with pain at this time. 10/11/20: Patient stated abdominal pain has let up some. 11/04; patient denies any abdomainl pain but is reporting some pain in low back today. Patient denies need for pain medication as pain is not bad at all documented as of this encounter Procedures Procedure Name Priority Date/Time Associated Diagnosis Comments PROCEDURE GENERIC (SCAN ORDER) 10/14/2024 documented in this encounter Results * PROCEDURE GENERIC (SCAN ORDER) (10/14/2024) 10/14/2024 us Doc [facility] Scanned SCANNING Final Resu lt documented in this encounter Visit Diagnoses Not on filedocumented in this encounter Additional Health Concerns Assessment Noted Time PHQ-9 Depression Total Score: 8 04/16/19 25 9:53 AM FLOODPLAIN MANAGER documented as of this encounter Care Teams Manager Entry Relationship Specialty [place] [address] [facility]. [address] [place] [address] PCP - General FAMILY PRACTICE 01/16/21 Nguyễn Rice MD [address] [address] [place] [employer] Oxyhydrogen CARDIOVASCULAR DISEASE 08/17/15 Petr Tyson MD [address] [address] Consulting Physician UROLOGY 02/17/19 Koby Moffett MD [address] [place] [address] Referring Physician OTOLARYNGOLOGY 10/23/19 documented as of this encounter
--- OUTSIDE RECORDS SUMMARY | 2024-10-18 01:22 | XMS_ITS | Encounter Summary ---
Author Organization [facility] Address [address] [place] [address] Care Team Providers Care Carburetor Expert Name Role Phone Nguyễn Rice MD Unavailable [phone] Jill Nesbitt SILICATOR Primary Care Provider Unav Petr Marie MD Unavailable [phone] Koby Moffett MD Unavailable Nivia Ag RN Unavailable [phone] Mirela Mai MD Primary Care Provider [phone] Encounter Details Date Type Department Care Team (Late st Contact Info) Description 08/01/2018 SALES OPERATIONS ANALYST ONLY [facility] Medical Group Priority [facility] - [address] [place] [address] Scanned, Documents Social History Tobacco Use Types Packs/Day Years Used Date Smoking Tobacco: Former Smokeless Tobacco: Never Comments:quit in 1991 Alcohol Use Standard Drinks/Week Comments No 0 (1 standard drink = 0.6 oz pur e alcohol) Comments No Sex and Gender Information Value Date Recorded Sex Assigned at Female 06/10/2018 6:40 PM CDT Legal Sex Female 11:35 PM CDT Gender Identity Female 06/10/2018 6:40 PM CDT Sexual Orientation Straight 08/13/2018 10 :21 AM CDT Occupation Industry Job Start Date Job End Date Not on file Not on file Not on file Not on file documented as of this encounter OR Notes * Op Note - Danika, Documents - 08/01/2018 12:00 AM CDT JANNET LUNA MD: ACCT: [id number] ADMIT/SERVICE DATE: 08/01/18 DISCHARGE DATE: : 1945 PT TYPE: REG SDC SEX: F ORD SITE: [facility] CHART DOCUMENT OPERATION RECORD DATE OF OPERATION: 08/01/2018 HISTORY: 73-YEAR-OLD COMES IN FOR INTERMITTENT DYSPHAGIA SYMPTOMS. PROCEDURE NOTE: INFORMED CONSENT OBTAINED EARLIER. PATIENT WAS SEEN IN THE OR, PLACED IN THE SUPINE LATERAL DECUBITUS POSITION AND SEDATED UNDER MAC ANESTHESIA. THE GIF-190 GASTROSCOPE WAS THEN LUBRICATED AND INSERTED INTO THE HYPOPHARYNX, ADVANCED BY DIRECT TECHNIQUE. UPPER, MIDDLE, DISTAL ESOPHAGUS LOOKED NORMAL. STOMACH DISTENDED WELL. RETROFLEXED VIEWS OF THE CARDIA, FUNDUS, ANGULARIS REVEALED NO ABNORMALITIES. ANTRUM LOOKED NORMAL. FIRST, SECOND PARTS OF DUODENUM LOOK NORMAL. SCOPE WITHDRAWN. FINDINGS: NORMAL UPPER ENDOSCOPY. ELECTRONICALLY SIGNED BY DARREN SUTTON MD 08/01/2018 01:30 P PK/RC 08/01/2018 08/01/2018 11:44 A JOB NO: [id number] DOC NO: [id number] CC: RUBY RUBIO MD documented in this encounter Plan of Treatment Upcoming Encounters Date Type Department Care Team (Late st Contact Info) Description 11/09/2024 10:30 AM CDT Office Visit [facility] Medical [facility] [address] [address] Deejay Hermosillo DO [address] [facility] [address] [place] [address] 11/12/2024 8:20 AM CDT Office Visit [facility] Family & Internal Medicine [address] [address] [place] [address] [facility]. [address] [place], [place] [id number] 02/15/2025 11:45 AM RECOIL SPRING WINDER Office Visit [facility] [address] [place] [address] Nguyễn Rice MD [facility]. [address] [place], [place] [id number] 06/16/2025 10:30 AM CDT Office Visit [facility] [address] [place] [address] Dale Beltrán MD [facility] [address] [place], [place] [id number] documented as of this encounter Visit Diagnoses Not on filedocumented in this encounter Additional Health Concerns Infection Onset Date Last Indicated Resolved Time MRSA 10/24/2016 10/24/2016 02/20/2019 9:17 AM RECOIL SPRING WINDER COVID-19 Rule Out 11/03/2019 11/03/2019 11/04/2019 8:34 PM CDT COVID-19 Rule Out 03/28/2020 03/28/2020 03/28/2020 7:38 AM RECOIL SPRING WINDER COVID-19 Rule Out 09/28/2020 09/28/2020 09/28/2020 4:03 PM CDT COVID-19 Rule Out 11/14/2023 11/14/2023 11/14/2023 11:27 AM CDT COVID-19 Confirmed 11/14/2023 11/14/2023 12:32 AM CDT Respiratory Rule Out 06/22/2024 06/22/2024 025 9:34 AM CDT documented as of this encounter Care Teams Carburetor Expert Relationship Specialty Start Date End Date Jill Nesbitt NP [facility]. [address] [address] PCP - General NURSE PRACTITIONER 03/18/17 01/15/21 [place] [address] [facility] [address] [place] [address] PCP - General FAMILY PRACTICE 01/16/21 Nguyễn Rice MD [facility] [place] [address] [place] Assembler Supervisor CARDIOVASCULAR DISEASE 08/17/15 Petr Tyson MD [facility] [place] [address] Consulting Physician UROLOGY 02/17/19 Koby Moffett MD [address] [place] [address] Referring Physician OTOLARYNGOLOGY 10/23/19 Nivia Ag, RN [address] [place] [address] Relocation Services Specialist (Ambulatory) REGISTERED NURSE 09/28/20 11/03/20 documented as of this encounter
--- OUTSIDE RECORDS SUMMARY | 2024-10-18 01:22 | XMS_ITS | Encounter Summary ---
Author Organization [facility] Address Critical access hospital[address] [place] [address] Care Team Providers Care Technical Operations Vice President Name Role Phone Nguyễn Rice MD Unavailable [phone] Petr Tyson MD Unavailable [phone] Koby Moffett MD Unavailable Mirela Mai MD Primary Care Provider [phone] Encounter Details Date Type Department Care Team (Late st Contact Info) Description 05/03/2022 [facility] Message Enc [facility], [address] [id number] Mychart, [facility] Provider Lab results Social History Tobacco Use Types Packs/Day Years Used Date Smoking Tobacco: Former Cigarettes 1 30 1 967 - 03/18/1991 Smokeless Tobacco: Never Comments:former smoker Alcohol Use [...] Answer Date Recorded Patient Health Questionnaire-2 Score 0 04/24/2022 Comments No Sex and Gender Information Value Date Recorded Sex Assigned at Female 06/10/2018 6:40 PM CDT Legal Sex Female 11:35 PM CDT Gender Identity Female 06/10/2018 6:40 PM CDT Sexual Orientation Straight 08/13/2018 10 :21 AM CDT Occupation Industry Job Start Date Job End Date Not on file Not on file Not on file Not on file COVID-19 Exposure Response Date Recorded In the last 10 days, have jay u been in contact with someone who was confirmed or suspected to have Coronavirus/COVID-19? No / Unsure 04/30/2022 9:09 AM STRUCTURAL ENGINEERING PROJECT MANAGER documented as of this encounter Functional Status [...] Description 11/09/2024 10:30 AM CDT Office Visit [facility] [address] [address] Deejay Hermosillo DO [address] [place] [address] [place] [address] 11/12/2024 8:20 AM CDT Office Visit [facility] Medical Group Family & Internal Medicine - [place] [address] [place] [phone] [place] [address] [facility]. [address] [place], [place] [id number] 02/15/2025 11:45 AM STRUCTURAL ENGINEERING PROJECT MANAGER Office Visit [facility] [address] [place] [phone] Nguyễn Rice MD [facility]. [address] [place], [place] [phone] 06/16/2025 10:30 AM CDT Office Visit [facility] [address] [place] [address] Dale Beltrán MD [facility]. [address] [place], [place] [id number] documented as of this encounter Goals Goal Patient Goal Type Associated Problems Recent Progress Patient-Stated? Author Safety Patient/family will have appropriate support at home upon discharge General No Kamille Haynes RN Establish Plan for Symptom Monitoring General On track( 021 3:37 PM CDT) Nivia Hamilton, JIMMY Note: 10/04/20: Patient monitoring s/s. Denies fever, [...] to maintain pain control General Nivia Hamilton, JIMMY Note: 10/04/20: Patient denies issues with pain at this time. 10/11/20: Patient stated abdominal pain has let up some. 11/04; patient denies any abdomainl pain but is reporting some pain in low back today. Patient denies need for pain medication as pain is not bad at all documented as of this encounter Visit Diagnoses Not on filedocumented in this encounter Additional Health Concerns Infection Onset Date Last Indicated Resolved Time COVID-19 Rule Out 11/14/2023 11/14/2023 11/14/2023 11:27 AM CDT COVID-19 Confirmed 11/14/2023 11/14/2023 12:32 AM CDT Respiratory Rule Out 06/22/2024 06/22/2024 025 9:34 AM CDT Assessment Noted Time PHQ-9 Depression Total Score: 0 03/27/19 23 2:30 PM STRUCTURAL ENGINEERING PROJECT MANAGER documented as of this encounter Care Teams Technical Operations Vice President Relationship Specialty [place] [address] [facility] [address] [place] [address] PCP - General FAMILY PRACTICE 01/16/21 Nguyễn Rice MD [address] [address] [employer] Slitting Machine Operator CARDIOVASCULAR DISEASE 08/17/15 Petr Tyson MD [address] [address] Consulting Physician UROLOGY 02/17/19 Koby Moffett MD [address] [place] [address] Referring Physician OTOLARYNGOLOGY 10/23/19 documented as of this encounter
--- OUTSIDE RECORDS SUMMARY | 2024-10-18 01:22 | XMS_ITS | Encounter Summary ---
Author Organization [facility] Address [facility] [place] [address] Care Team Providers Care Road Mender Name Role Phone Nguyễn Rice MD Unavailable [phone] Jill Nesbitt NP Primary Care Provider Unav Petr Marie MD Unavailable [phone] Koby Moffett MD Unavailable Nivia Ag RN Unavailable [phone] Mirela Mai MD Primary Care Provider [phone] Encounter Details Date Type Department Care Team (Late st Contact Info) Description 10/04/2020 Hospital Follow-up Call [facility] 4th Floor Medical [address] [place] [address] Hollie Pearson RN Social History Tobacco Use Types Packs/Day Years Used Date Smoking Tobacco: Former Cigarettes 30 967 - 1991 Smokeless Tobacco: Never Alcohol Use Standard Drinks/Week Comments Never 0 (1 standard drink = 0.6 oz pur e alcohol) AUDIT-C Answer Date Recorded Q1: How often do you have a drink containing alc ohol? Never 10/19/2019 Average Number of Drinks Not on file 020 Frequency of Binge Drinking Not on file 0805/2019 PHQ-2 Answer Date Recorded PHQ-2 Score - If the patient scores above 3, please move on to questions 3-9 0 08/18/2020 Comments No Sex and Gender Information Value [...] Exposure Response Date Recorded In the last month, have you been in contact with someone who was confirmed or suspected to have Coronavirus / COVID-19? No / Unsure 09/27/2020 5:04 AM CDT documented as of this encounter Functional Status [...] Description 11/09/2024 10:30 AM CDT Office Visit [facility] [address] [address] Deejay Hermosillo DO 3 [facility] [address] [place] [address] 11/12/2024 8:20 AM CDT Office Visit [facility] Medical Group Family & Internal Medicine [facility] [address] [place] [address] [place] [address] [facility]. [address] [place], [place] [phone] 02/15/2025 11:45 AM SUPERINTENDENT NONSELLING Office Visit [facility] [place] [address] [place] [phone] Nguyễn Rice MD [facility]. [address] [place], [place] [address] 06/16/2025 10:30 AM CDT Office Visit [facility] [address] [place] [address] Dale Beltrán MD [facility]. [address] [place], [place] [phone] documented as of this encounter Goals Goal Patient Goal Type Associated Problems Recent Progress Patient-Stated? Author Safety Patient/family will have appropriate support at home upon discharge General No Kamille Haynes, RN Establish Plan for Symptom Monitoring General On track( 021 3:37 PM CDT) No Nivia Ag, JIMMY Note: 10/04/20: Patient monitoring s/s. Denies [...] Monitor - able to maintain pain control Nivia Lam, RN Note: 10/04/20: Patient denies issues with [...] Assessment Noted Time PHQ-9 Depression Total Score: 5 08/19/19 9:43 AM CDT documented as of this encounter Care Teams Road Mender Relationship Specialty Start Date End Date Jill Nesbitt NP [address] [address] PCP - General NURSE PRACTITIONER 03/18/17 01/15/21 [place] [address] [facility]. [address] [place] [address] PCP - General FAMILY PRACTICE 01/16/21 Nguyễn Rice MD [facility]. [address] [address] [place] Supervisor CARDIOVASCULAR DISEASE 08/17/15 Petr Tyson MD [facility]. [address] [address] Consulting Physician UROLOGY 02/17/19 Koby Moffett MD [address] [place] [address] [place] [address] Referring Physician OTOLARYNGOLOGY 10/23/19 Nivia Ag, RN [address] [place], [place] [address] Senior Industrial Engineer (Ambulatory) REGISTERED NURSE 09/28/20 11/03/20 documented as of this encounter
--- OUTSIDE RECORDS SUMMARY | 2024-10-18 01:22 | XMS_ITS | Clinical Summary ---
Author Organization [facility] Address [address] [place] [address] Care Team Providers Care Extractor Filler Name Role Phone Nguyễn Rice MD Unavailable [phone] Petr Tyson MD Unavailable [phone] Koby Moffett MD Unavailable Mirela Mai MD Primary Care Provider [phone] Allergies Active Allergy Reactions Criticality Noted Date Comments Lisinopril Cough Low 02/17/2018 Morphine Itching Low 01/03/2016 Prednisone Headache Low 01/03/2016 Rivaroxaban GI Bleed Low 04/05/2016 Medications Agra-3 Fatty Acids (SM FISH OIL) 1000 MG CapIndications:Ramila nges in Cholesterol (Inactive) Take 1 capsule (1,000 mg total) by mouth daily. Indications: CHANGES IN CHOLESTEROL (INACTIVE) 09/14/19 13 Active multivitamin tabletIndications: Vitamin Deficiency Take 1 tablet by mouth daily. Indications: Vitamin Deficiency 10/07/19 13 Active vitamin B-12 100 MCG tabletIndications: Vitamin B12 Deficiency,taking q other day Take 10 tablets (1,000 mcg total) by mouth. Indications: Inadequate Vitamin B12, taking q other day 10/05/19 21 Active famotidine 20 MG tabletIndications: Abdominal bloating Take 1 tablet (20 mg total) by mouth 2 (two) times daily as needed for Heartburn. 60 tablet 1 07/22/19 22 Active bumetanide (BUMEX) 1 MG tablet Take 1 tablet (1 mg total) by mouth every other day. 90 tablet 1 11/22/19 24 Active albuterol sulfate HFA 108 (90 Base) MCG/ACT inhalerIndications :Centrilobular emphysema ([facility]/HCC HHS/HCC) USE 2 INHALATIONS EVERY 6 HOURS NEEDED FOR WHEEZING 17 g 4 12/09/19 24 Active fluticasone propionate (FLONASE) 50 MCG/ACT nasal sprayIndications:P ostnasal drip 2 sprays by Nasal route daily. 16 g 11 12/11/19 24 Active empagliflozin (JARDIANCE) 10 MG tabletIndications: Stage 3a chronic kidney disease ([facility]/HCC) Take 1 tablet (10 mg total) by mouth daily. 30 tablet 11 12/16/19 24 Active rOPINIRole (REQUIP) 2 MG tabletIndications: Restless leg syndrome take 1 tablet twice a day 180 tablet 3 12/19/19 24 Active warfarin (COUMADIN) 3 MG tablet TAKE 1 TABLET (3mg) BY MOUTH SATURDAY AND SATURDAY EVENINGS THEN 1.5 TABLETS ALL OTHER EVENINGS 104 tablet 3 01/01/20 24 Active atenolol (TENORMIN) 25 MG tabletIndications: Altered Blood Pressure TAKE 1 TABLET (25 MG TOTAL) BY MOUTH 2 (TWO) TIMES DAILY. INDICATIONS: CHANGES IN BLOOD PRESSURE 180 tablet 1 02/28/20 24 Active gabapentin (NEURONTIN) 100 MG capsuleIndications :Spinal stenosis of lumbar region without neurogenic claudication Take 1 capsule by mouth twice daily 60 capsule 11 04/29/19 25 Active Fluticasone-Umecli din-Vilant (TRELEGY ELLIPTA) 100-62.5-25 MCG/ACT AEROSOL POWDER, BREATH ACTIVATEDIndicatio ns:Centrilobular emphysema ([facility] HHS/HCC) Inhale 1 puff into the lungs daily. 180 each 3 05/11/19 25 Active montelukast (SINGULAIR) 10 MG tabletIndications: Chronic rhinitis TAKE 1 TABLET NIGHTLY AT BEDTIME 90 tablet 3 05/14/19 25 Active ibuprofen (MOTRIN) 200 MG tablet Take 2 tablets (400 mg total) by mouth. Active bacitracin-polymyx in b (POLYSPORIN) ophthalmic ointment every 12 (twelve) hours. Active HYDROcodone-acetam inophen (NORCO) 5-325 MG tabletIndications: Chronic Pain Take 1 tablet by mouth 2 (two) times daily as needed for Pain. Indications: Chronic Pain 60 tablet 09/12/19 25 Active losartan (COZAAR) 50 MG tabletIndications: Essential hypertension,Stage 3b chronic kidney disease (CMS/HCC) Take 1.5 tablets (75 mg total) by mouth daily. 135 tablet 3 07/30/19 25 Active HYDROcodone-acetam inophen (NORCO) 5-325 MG tabletIndications: Acute Pain < 7 Day Supply Take 1 tablet by mouth every 6 (six) hours as needed. Indications: Acute Pain < 7 Day Supply 20 tablet 08/04/19 25 Active atorvastatin (LIPITOR) 40 MG tabletIndications: Mixed hyperlipidemia TAKE 1 TABLET NIGHTLY AT BEDTIME (FOR HIGH AMOUNT OF FATS IN THE BLOOD) 90 tablet 3 08/05/19 25 Active cholestyramine (QUESTRAN) 4 G packetIndications: RUQ pain,Bile salt-induced diarrhea (HHS/HCC) TAKE 1 PACKET (4 G TOTAL) BY MOUTH 2 (TWO) TIMES DAILY WITH MEALS FOR 60 DAYS. 180 packet 1 04/20/19 25 025 Active Problems Problem Noted Date Diagnosed Date Dacryocystitis, acute, left 06/11/2024 At high risk for falls 06/29/2022 Lumbar radiculopathy 03/07/2022 Overview (03/07/2022): Added automatically from request for surgery [id number] Fatty liver 01/11/2022 Morbid (severe) obesity due to excess calories 0 10/04/2021 Morbid obesity with BMI of 40.0-44.9, adult 09/16 Abdominal bloating 07/24/2021 Overview (07/24/2021): Added automatically from request for surgery [id number] Albuminuria 03/29/2021 Secondary lymphedema 11/03/2020 Stage 3b chronic kidney disease 10/26/2020 Ascending cholangitis 09/27/2020 Venous insufficiency of right lower extremity Spinal stenosis of cervical region 12/15/2018 Foraminal stenosis of cervical region 12/15/2018 Degenerative disc disease, cervical 12/15/2018 Abdominal pain, unspecified abdominal location 0 12/03/2018 Varices of perineum 12/03/2018 Presence of IVC filter 12/03/2018 Bilateral carotid artery stenosis 02/17/2018 Dyspnea on exertion 02/17/2018 Claudication, intermittent 08/08/2017 Serum creatinine raised 08/08/2017 Gait disturbance 05/14/2017 Chronic cough 12/27/2016 Non-rheumatic mitral regurgitation 01/10/2016 Atrial fibrillation, chronic ([facility] HHS/HCC) 0 09/08/2015 Lumbar degenerative disc disease 05/09/2015 Spondylolisthesis of lumbar region 05/09/2015 Multiple thyroid nodules 01/21/2015 Anemia 12/22/2014 Overactive bladder 06/02/2014 Prediabetes 02/01/2014 Overview (11/10/2018): Transitioned From: Hyperglycemia Sleep apnea 01/10/2014 Scoliosis 01/07/2013 Lumbar canal stenosis 11/26/2012 Overview (11/10/2018): Description: Critical. Cheilosis 09/25/2012 Eczema 04/11/2012 Gout 04/11/2012 Esophageal reflux 12/04/2011 Generalized osteoarthritis of multiple sites Vitamin D deficiency 12/04/2011 Hypertension Dyslipidemia H/O venous thrombosis and embolism Resolved Problems Problem Noted Date Diagnosed Date Resolved Date Class 3 severe obesity due t o excess calories with body mass index (BMI) of 40.0 to 44.9 in adult, unspecified whether serious comorbidity present 02/16/2020 04/03/2022 Wears glasses 12/27/2016 11/27/2019 Hyperlipidemia 04/11/2012 07/06/2021 Atrial fibrillation ([facility]) 07/06/2021 Obesity 04/03/2022 Encounters Date Type Department Care Team Description 10/14/2024 Scan [facility] Scanned, [facility] Procedure (SCAN) 10/05/2024 Scan [facility] Scanned, [facility] Image (SCAN) 10/01/2024 Scan [facility] Scanned, [facility] 10/01/2024 Telephone [facility], [address] [address] Nguyễn Rice MD Surgical Clearance 09/30/2024 11:20 AM CDT - 09/30/2024 11:59 PM CDT Hospital Encounter [address] [address] Nguyễn Rice MD Discharge Disposition: Home or Self Care (Routine Discharge) 09/30/2024 Anti-Coag Telephone Call [facility] on [address] [address] Meredith Wheeler, JIMMY Anticoagulation (INR) 09/30/2024 Travel 09/02/2024 9:34 AM CDT - 09/02/2024 11:59 PM CDT Hospital Encounter [facility] [place] [id number] [place] [address] Nguyễn Rice MD Discharge Disposition: Home or Self Care (Routine Discharge) 09/02/2024 Anti-Coag Telephone Call [facility] on [address] [address] Meredith Wheeler RN Anticoagulation (INR) 09/02/2024 Travel 08/26/2024 Telephone [facility] [place] [address] [id number] Carmencita Heredia CNA Referral 08/25/2024 Telephone [facility] [place] [address] [id number] Maria Teresa Gutierrez heavy truck mechanic 08/20/2024 Telephone [facility] [place] [address] [phone] Anastasia Quigley RN Follow Up (/) 08/20/2024 Orders Only [facility] [place] [address] [id number] Duarte Roach, LENORE 08/19/2024 8:57 AM CDT - 08/19/2024 11:59 PM CDT Hospital Encounter [address] [address] Nguyễn Rice MD Discharge Disposition: Home or Self Care (Routine Discharge) 08/19/2024 [facility]ag [facility] [address] [address] Meredith Wheeler, RN Anticoagulation (INR) 08/19/2024 Travel 08/17/2024 1:00 PM CDT Office Visit [facility] [address] [phone] Berkley Trujillo, FRUIT ROOM HAND CHF; Atrial Fibrillation; Hypertension; Lipids 08/17/2024 Travel 08/17/2024 [facility] Only [facility] [address] [address] Karolyn Craig RN 08/11/2024 8:23 AM CDT - 08/11/2024 11:59 PM CDT Hospital Encounter [facility] [place] [address] [id number] Erin Turk MD Discharge Disposition: Home or Self Care (Routine Discharge) 08/11/2024 Travel 08/04/2024 Telephone [facility] [place] [address] [id number] Enedina Miller, JIMMY Follow Up Call 08/03/2024 11:00 AM CDT - 08/03/2024 12:00 PM CDT Surgery [facility] [place] [address] [id number] Erin Turk MD IMPLANT STIMULATOR SPINAL CORD TRIAL 08/03/2024 9:40 AM CDT - 08/03/2024 12:59 PM CDT Hospital Encounter [facility] [place] [address] [id number] Erin Turk MD Discharge Disposition: Home or Self Care (Routine Discharge) 08/03/2024 8:49 AM CDT - 08/03/2024 9:39 AM CDT Hospital Encounter [facility] [address] [place] [address] Erin Turk MD Discharge Disposition: Home or Self Care (Routine Discharge) 08/03/2024 Travel 07/31/2024 Orders Only [facility] [place] [address] [id number] Erin Turk MD 07/29/2024 9:20 AM CDT Office Visit [facility] [address] [phone] Mirela Mai MD Follow Up 07/29/2024 Results Follow-Up [facility] [address] [phone] Mirela Mai MD HEMOGLOBIN, GLYCOSYLATED 07/29/2024 Travel from Last 3 Months Immunizations Immunization Administration Dates Next Due Arexvy Respiratory Syncytial Virus (RSV, adjuvanted) 0.5 mL, PF 12/07/2022 Fluarix (IIV4) 01/14/2023 Fluzone High Dose (IIV, triv alent, 0.5mL) 11/04/2023 Fluzone High Dose - >Age 65 (Prefilled Syringe) 12/11/2021,12/19/2020,12/18/2019,2018 Influenza (Generic) 12/17/2012 Influenza Adult (Generic) 12/25/2017,04/2016,02/07/2016,2014,12/30/2013 MODERNA COVID-19 (12+) MRNA, LNP-S, PF, 100 MCG/ 0.5 ML DOSE 06/28/2020,05/31/2020 Pneumococcal (Pneumovax 23) 02/15/2020 Pneumococcal (Prevnar 13) 02/11/2019 Shingrix 12/13/2021,10/09/2021 Tdap (Generic) 11/04/2023 Family History Medical History Relation Comments Hypertension Daughter Narcolepsy Daughter None Daughter Cancer Father chest area, but not in lung Heart Disease Father Hypertension Father Arthritis Mother Breast Cancer Mother UNSURE OF AGE Cancer Mother breast cancer Cancer Sister lung No Known Problems Son 1 No Known Problems Son 2 Relation Status Comments Daughter Alive Father (Age 70) heart trouble and cancer Mother (Age 92) of old ag e Sister Son 1 Alive Son 2 Alive Social History Tobacco Use Types Packs/Day Years Used Date Smoking Tobacco: Former Cigarettes 1 30 1 967 - 07/17/1991 Smokeless Tobacco: Never Tobacco Cessation:Counseling Given: No Comments:former smoker Alcohol Use Standard Drinks/Week Comments [...] file Not on file Not on file Last Filed Vital Signs Vital Sign Reading Time Taken Comments Blood Pressure 150/88 08/17/2024 12:41 PM CDT Pulse 63 08/17/2024 12:41 PM CDT Temperature 35.6 C (96 F) 08/03/2024 10:06 AM CDT Respiratory Rate 20 08/03/2024 12:17 PM CDT Oxygen Saturation 94% 08/03/2024 12:17 PM CDT Inhaled Oxygen Concentration - - Weight 113.4 kg (250 lb) 08/17/2024 12:41 PM CDT Height 162.6 cm (5' 4) 08/17/2024 12:41 PM CDT Body Mass Index 42.91 08/17/2024 12:41 PM CDT Plan of Treatment Upcoming Encounters Date Type Department Care Team (Late st Contact Info) Description 11/09/2024 10:30 AM CDT Office Visit [facility] [address] [place] [phone] Deejay Hermosillo DO [address] [facility] [address] [place], [place] [address] 11/12/2024 8:20 AM CDT Office Visit [facility] [address] [place] [phone] [place] [address] [facility]. [address] [place], [place] [phone] 02/15/2025 11:45 AM LABORATORY SPECIALIST Office Visit [facility] [address] [place] [phone] Nguyễn Rice MD [facility]. [address] [place] [address] 06/16/2025 10:30 AM CDT Office Visit [facility] [address] [place] [phone] Dale Beltrán MD [facility]. [address] [place], [place] [phone] Health Maintenance Due Date Last Done Comments Annual Medicare Wellness Visit 05/23/2008 COVID-19 Vaccine ( season) 2023 12/07/2022, 03/13/2022, 03/15/2021, Additional history exists DTaP, Tdap and Td Vaccines (2 - Td or Tdap) 11/03/2033 11/04/2023 Dexa Scan (General) Completed 09/16/2019 Pneumococcal Vaccine: 50+ Years Completed 02/15/2020, 02/11/2019 Zoster Vaccines Completed 12/13/2021, 10/09/2021 RSV Immunization or 60+ Years Completed 12/07/2022 PHQ-2 (Physician [place]) Completed 04/16/2024 Meningococcal B Vaccine Aged Out No l onger eligible based on patient's age to complete this topic Meningococcal Vaccine Aged Out No opal darrion eligible based on patient's age to complete this topic RSV Immunizations Under 20 Months Aged Out No longer eligible based on patient's age to complete this topic Goals Goal Patient Goal Type Associated Problems [...] as pain is not bad at all Medical Devices Implanted Type Area Relief Driller Device Identifier Shelf Expiration Date Model / Serial / Lot Lead Metronic Nervestimulator 5mm 1 X 8 - [id number] Implanted:Qty: 1 on 08/03/2024 by Erin Turk MD at [facility] Lead Implant N/A: Back [employer] [id number] / / [id number] Lead Metronic Nervestimulator 5mm 1 X 8 - [id number] Implanted:Qty: 1 on 08/03/2024 by Erin Turk MD at [facility] Lead Implant N/A: Back [employer] [id number] / / [id number] Iol Tecnis Simplicity Dcb00 - [id number] Implanted:Qty: 1 on 12/18/2023 by Rochelle Sanon MD at [facility] Lens Left: Eye [employer] 04/01/2026 [id number] / [id number] / Stent Advanix Biliary 10f X 7cm - [id number] Implanted:Qty: 1 on 09/27/2020 by Db Palmer MD at [facility] Stent N/A: Bile Duct [employer] BIL[employer]ARY [employer]ENT 05/26/2022 [id number] / / [id number] Stent Advanix Biliary 7fr 7cm - [id number] Implanted:Qty: 1 on 07/17/2021 by Clovis Lenz MD at [facility] Stent N/A: Abdomen [employer] [id number] 05/11/2023 [id number] / [id number] / [id number] Description:COMMON BILE DUCT Tecnis 1-Piece Iol Implanted:Qty: 1 on 02/19/2024 by Rochelle Sanon MD at [facility] Right: Eye [employer] 01/22/2026 [id number] / [id number] / Procedures Procedure Name Priority Date/Time Associated Diagnosis Comments PROCEDURE GENERIC (SCAN ORDER) 10/14/2024 IMAGE GENERIC 10/05/2024 PROTHROMBIN TIME, FINGERSTICK Routine 09/30/2024 11:25 AM CDT Persistent atrial fibrillation (CMS/HCC HHS/HCC) detention (current) use of anticoagulants PROTHROMBIN TIME, FINGERSTICK Routine 09/02/2024 9:43 AM CDT Persistent atrial fibrillation (CMS/HCC HHS/HCC) detention (current) use of anticoagulants PROTHROMBIN TIME, FINGERSTICK Routine 08/19/2024 9:05 AM CDT Persistent atrial fibrillation (CMS/HCC HHS/HCC) detention current use of anticoagulant therapy PERCUT IMPLNT NEUROELECT,EPIDURAL 08/03/2024 11:10 AM CDT Lumbar radiculopathy XR PAIN CLINIC C-ARM Today 08/03/2024 9:45 AM CDT PROTHROMBIN TIME, FINGERSTICK Routine 08/03/2024 9:10 AM CDT Atrial fibrillation, chronic (CMS/HCC HHS/HCC) COLLECT.CAPILLARY (FNGR,HEEL,EAR) Routine 07/29/2024 9:12 AM CDT Prediabetes HEMOGLOBIN, GLYCOSYLATED Routine 07/29/2024 Prediabetes BONE DENSITY/DEXA Routine 09/16/2019 10: 27 AM CDT Post-menopausal from Last 3 Months or Most Recently Relevant to Health Maintenance Results * PROCEDURE GENERIC (SCAN ORDER) (10/14/2024) 10/14/2024 [facility] Scanned SCANNING Final Resu lt * IMAGE GENERIC (10/05/2024) Anatomical Region Laterality Modality Other 10/05/2024 [facility] Scanned SCANNING Final Resu lt * PROTIME/INR, FINGERSTICK (09/30/2024 11:25 AM CDT) Only the most recent of4 resultswithin the time period is included. INR WHOLE BLOOD 3.0 11:25 AM CDT [facility] Comment: Recommend INR ranges for Oral Anticoagulant Therapy: Mechanical Cardiac Values 2.5-3.5 All others indication 2.0-3.0 09/30/2024 11:2 5 AM CDT Nguyễn Rice MD LABORATORY Final Resul t Performing Organization Address City/[facility]/ZIP Co de Phone Number [facility] [address] [place] [address], * XR PAIN CLINIC C-ARM (08/03/2024 9:45 AM CDT) Narrative Radiology, Technologist - 08/03/2024 9:45 AM CDT This report does not contain a radiologist's interpretation. Please review associated procedure and/or operative report. Erin Turk MD GENERAL IMAGING Final Result * HEMOGLOBIN, GLYCOSYLATED (07/29/2024) HGB A1C 5.7 % [id number] T [facility] 07/29/2024 Mirela Mai MD LABORATORY Final Result Performing Organization Address [facility] Co de Phone Number -[phone] [facility] [address] [place] [address], * BONE DENSITY/DEXA (09/16/2019 10:27 AM CDT) Anatomical Region Laterality Modality Bone Bone Density 09/16/2019 11:0 8 AM CDT Impressions 09/16/2019 11:09 AM CDT IMPRESSION: LUMBAR SPINE L2-L4: BMD: 1.171 g/sq cm. T-score: 0.8. WHO classification: Normal young adult range. Fracture risk: Very low fracture risk. FEMORAL NECK: BMD: 0.904 g/sq cm. T-score: 0.5. WHO classification: Normal young adult range. Fracture risk: Very low fracture risk. Interpreted By: Erlin Camp, 09/16/2019 11:08 AM Narrative 09/16/2019 11:09 AM CDT IMAGING STUDIES: BONE DENSITY/DEXA DATE: 09/16/2019 9:48 AM INDICATION: Osteoporosis. Asymptomatic menopausal state. COMPARISON:No comparison. Procedure Note Erlin Camp MD - 09/16/2019 IMAGING STUDIES: BONE DENSITY/DEXA DATE: 09/16/2019 9:48 AM INDICATION: Osteoporosis. Asymptomatic menopausal state. COMPARISON:No comparison. IMPRESSION: LUMBAR SPINE L2-L4: BMD: 1.171 g/sq cm. T-score: 0.8. WHO classification: Normal young adult range. Fracture risk: Very low fracture risk. FEMORAL NECK: BMD: 0.904 g/sq cm. T-score: 0.5. WHO classification: Normal young adult range. Fracture risk: Very low fracture risk. Interpreted By: Erlin Camp, 09/16/2019 11:08 AM Jill Nesbitt NP DEXA Final Resul t from Last 3 Months or Most Recently Relevant to Health Maintenance Insurance MEDICARE [facility] Advance Directives * Full Code (Latest Code Status on File) Date Activated Date Inactivated Comments 10/04/2020 2:06 PM 11/25/2020 7:23 AM * Full Code Date Activated Date Inactivated Comments 09/27/2020 5:47 AM 10/03/2020 7:42 PM * Full Code Date Activated Date Inactivated Comments 04/06/2020 1:37 PM 09/26/2020 4:57 PM Care Teams Extractor Filler Relationship Specialty [place] [id number] [facility] [place] [id number] PCP - General FAMILY PRACTICE 01/16/21 Nguyễn Rice MD [facility]. [address] [address] [place] Supervising Floorperson CARDIOVASCULAR DISEASE 08/17/15 Petr Tyson MD [facility]. [facility] [address] [place] [address] Consulting Physician UROLOGY 02/17/19 Koby Moffett MD [address] [place] [address] [place] [address] Referring Physician OTOLARYNGOLOGY 10/23/19
--- OUTSIDE RECORDS SUMMARY | 2024-10-18 01:22 | XMS_ITS | Encounter Summary ---
Author Organization [facility] Address [facility] [place] [address] Care Team Providers Care Sleeve Bottom Feller Name Role Phone Nguyễn Rice MD Unavailable [phone] Jill Nesbitt SOLDER MAKING SUPERVISOR Primary Care Provider Unav Petr Marie MD Unavailable [phone] Koby Moffett MD Unavailable Nivia Ag RN Unavailable [phone] Mirela Mai MD Primary Care Provider [phone] Encounter Details Date Type Department Care Team (Late st Contact Info) Description 08/20/2017 Abstract [facility], [address] [address] Mohan Waters MA Social History Tobacco Use Types Packs/Day Years [...] Description 11/09/2024 10:30 AM CDT Office Visit [facility] - [place] [address] [place] [phone] Deejay Hermosillo DO [facility] [address] [place] [address] 11/12/2024 8:20 AM CDT Office Visit [facility] Internal Medicine - [place] [address] [place] [phone] [place] [address] [facility]. [address] [place], [place] [address] 02/15/2025 11:45 AM TOWNSHIP SUPERVISOR Office Visit [facility] [address] [place] [phone] Nguyễn Rice MD Three [facility]. [address] [place], [place] [address] 06/16/2025 10:30 AM CDT Office Visit [facility] [address] [place] [address] Dale Beltrán MD [facility]. [address] [place], [place] [address] documented as of this encounter Procedures Procedure Name Priority Date/Time Associated Diagnosis Comments BASIC METABOLIC PANEL Routine 11/08/2017 HEMOGLOBIN, GLYCOSYLATED Routine 11/08/2017 FOLATE (OUTSIDE LAB) Routine 08/01/2017 CBC (OUTSIDE LAB) Routine 08/01/2017 VITAMIN B-12 Routine 08/01/2017 COMPREHENSIVE METABOLIC PANEL Routine 08/01/2017 LIPID PANEL Routine 08/01/2017 THYROID STIM HORMONE TSH Routine 08/01/2017 documented in this encounter Results * HEMOGLOBIN, GLYCOSYLATED (11/08/2017) HGB A1C 6.2 11/08/2017 us Doc [facility] Abstract LABORATORY Final Result * (ABNORMAL) BASIC METABOLIC PANEL (11/08/2017) SODIUM S/P/B 141 POTASSIUM S/P/B 4.0 CO2 26.9 CHLORIDE S/P/B 104 GLUCOSE 108 mg/dL CALCIUM S/P/B 8.8 BUN 23 CREATININE S/P/B 1.13(A) 0.5 - 1.0 EGFR AFR. AMER. 55 <=90 EGFR NON-AFR. AMER. 48 <=90 11/08/2017 us Doc [facility] Abstract LABORATORY Final Result * FOLATE (OUTSIDE LAB) (08/01/2017) FOLATE 55 08/01/2017 us Doc [facility] Abstract LAB-OUTSIDE/ABSTRACTED Final Result * VITAMIN B-12 (08/01/2017) VITAMIN B12 S/P/B 418 08/01/2017 us Doc [facility] Abstract LABORATORY Final Result * THYROID STIM HORMONE, TSH (08/01/2017) TSH 2.490 08/01/2017 us Doc [facility] Abstract LABORATORY Final Result * LIPID PANEL (08/01/2017) Pathologist [facility] CHOLESTEROL 133 HDL 22 TRIGLYCERIDES 342 LDL (CALCULATED) 42.6 08/01/2017 us Doc [facility] Abstract LABORATORY Final Result * (ABNORMAL) COMPREHENSIVE METABOLIC PANEL (08/01/2017) Pathologist [facility] SODIUM S/P/B 141 POTASSIUM S/P/B 4.2 CO2 26 CHLORIDE S/P/B 104 GLUCOSE 110 mg/dL CALCIUM S/P/B 8.6 BUN 27 CREATININE S/P/B 1.21(A) 0.5 - 1.0 EGFR AFR. AMER. 51 <=90 EGFR NON-AFR. AMER. 44 <=90 ALKALINE PHOSPHATASE S/P/B 84 ALT 26 AST 23 BILIRUBIN TOTAL S/P/B 0.3 ALBUMIN S/P/B 3.6 3.5 - 5.0 TOTAL PROTEIN S/P/B 7.5 08/01/2017 us Doc [facility] Abstract LABORATORY Final Result * CBC (OUTSIDE LAB) (08/01/2017) Pathologist [facility] WBC 8.5 HGB 13.2 HCT 42.3 PLT 266 08/01/2017 us Doc [facility] Abstract LAB-OUTSIDE/ABSTRACTED Final Result documented in this encounter Visit Diagnoses Not on filedocumented in this encounter Additional Health Concerns Infection Onset Date Last Indicated Resolved Time MRSA 10/24/2016 10/24/2016 02/20/2019 9:17 AM TOWNSHIP SUPERVISOR COVID-19 Rule Out 11/03/2019 11/03/2019 11/04/2019 8:34 PM CDT COVID-19 Rule Out 03/28/2020 03/28/2020 03/28/2020 7:38 AM TOWNSHIP SUPERVISOR COVID-19 Rule Out 09/28/2020 09/28/2020 09/28/2020 4:03 PM CDT COVID-19 Rule Out 11/14/2023 11/14/2023 11/14/2023 11:27 AM CDT COVID-19 Confirmed 11/14/2023 11/14/2023 12:32 AM CDT Respiratory Rule Out 06/22/2024 06/22/2024 025 9:34 AM CDT documented as of this encounter Care Teams Sleeve Bottom Feller Relationship Specialty Start Date End Date Jill Nesbitt NP [facility]. [address] [address] PCP - General NURSE PRACTITIONER 03/18/17 01/15/21 [place] [address] [address] PCP - General FAMILY PRACTICE 01/16/21 Nguyễn Rice MD [place] [id number] Odessa Crane Rigger CARDIOVASCULAR DISEASE 08/17/15 Petr Tyson MD [address] [address] Consulting Physician UROLOGY 02/17/19 Koby Moffett MD [address] [place] [address] Referring Physician OTOLARYNGOLOGY 10/23/19 Nivia Ag, RN [address] [place] [address] Retail Marketing Executive (Ambulatory) REGISTERED NURSE 09/28/20 11/03/20 documented as of this encounter
--- OUTSIDE RECORDS SUMMARY | 2024-10-18 01:22 | XMS_ITS | Encounter Summary ---
Author Organization [facility] Address [facility] [place] [address] Care Team Providers Care Admissions Counselor Name Role Phone Nguyễn Rice MD Unavailable [phone] Petr Tyson MD Unavailable [phone] Koby Moffett MD Unavailable Mirela Mai MD Primary Care Provider [phone] Encounter Details Date Type Department Care Team (Late st Contact Info) Description 07/05/2022 Ak[place]ha Message Enc [facility] Family & Internal Medicine [address] [address] [facility], [facility] Provider UTI Social History Tobacco Use Types Packs/Day Years [...] Date Recorded Patient Health Questionnaire-2 Score 0 06/29/2022 Comments No Sex and Gender Information Value [...] suspected to have Coronavirus/COVID-19? No / Unsure 07/04/2022 9:04 AM CDT documented as of this encounter [...] Description 11/09/2024 10:30 AM CDT Office Visit [facility] [address] [place] [address] Deejay Hermosillo DO [address] [place] [address] [place] [address] 11/12/2024 8:20 AM CDT Office Visit [facility] Family & Internal Medicine - [place] [address] [place] [address] [place] [address] [facility]. [address] [place], [place] [phone] 02/15/2025 11:45 AM SUPERVISOR CELL MAINTENANCE Office Visit [facility] [place] [address] [place] [address] Nguyễn Rice MD [facility]. [facility] [address] [place], [place] [phone] 06/16/2025 10:30 AM CDT Office Visit [facility] [place] [phone] [place] [address] Dale Beltrán MD [facility]. [address] [place], [place] [phone] documented as of this encounter Goals Goal [...] Total Score: 0 03/27/19 23 2:30 PM SUPERVISOR CELL MAINTENANCE documented as of this encounter Care Teams Admissions Counselor Relationship Specialty [place] [address] [facility] [address] [place] [address] PCP - General FAMILY PRACTICE 01/16/21 Nguyễn Rice MD [address] [address] Wilson Receivable Clerk CARDIOVASCULAR DISEASE 08/17/15 Petr Tyson MD [address] [address] Consulting Physician UROLOGY 02/17/19 Koby Moffett MD [address] [place] [address] Referring Physician OTOLARYNGOLOGY 10/23/19 documented as of this encounter
--- OUTSIDE RECORDS SUMMARY | 2024-10-18 01:22 | XMS_ITS | Encounter Summary ---
Author Organization [facility] Address [facility] [place] [address] Care Team Providers Care Antiquer Name Role Phone Nguyễn Rice MD Unavailable [phone] Jill Nesbitt APPLICATION PROJECT LEADER Primary Care Provider Unav Petr Marie MD Unavailable [phone] Koby Moffett MD Unavailable Nivia Ag RN Unavailable Mirela Mai MD Primary Care Provider Encounter Details Date Type Department Care Team (Late st Contact Info) Description 02/17/2019 Prep for Procedure [facility] [address] Dale Beltrán MD Three [facility]. [address] [place] [address] Social History Tobacco Use Types Packs/Day Years Used Date Smoking Tobacco: Former Cigarettes Smokeless Tobacco: Never Comments:quit in 1991 Alcohol Use Standard Drinks/Week Comments No 0 (1 standard drink = 0.6 oz pur e alcohol) PHQ-2 Answer Date Recorded PHQ-2 Score 0 02/10/2019 Comments No Sex and Gender Information Value [...] Description 11/09/2024 10:30 AM CDT Office Visit [facility] [address] [place] [phone] Deejay Hermosillo DO 3 [facility] [address] [place], [place] [address] 11/12/2024 8:20 AM CDT Office Visit [facility] Family & Internal Medicine [facility] [address] [place] [address] [place] [address] [facility]. [address] [place], [place] [address] 02/15/2025 11:45 AM CLINICAL REVIEWER Office Visit [facility] [address] [place] [address] Nguyễn Rice MD [facility]. [address] [place] [address] 06/16/2025 10:30 AM CDT Office Visit [facility] [address] [place] [address] Dale Beltrán MD [facility]. [address] [place], [place] [address] documented as of this encounter Results * PTT, PARTIAL THROMBOPLASTIN TIME (02/20/2019 7:42 AM CLINICAL REVIEWER) PTT 36.2 25.5 - 37.6 SEC 02/20/2019 8:[address] [facility] 02/20/2019 7:42 AM CLINICAL REVIEWER us Dale Beltrán MD LABORATORY Final Result Performing Organization Address [facility] Co de Phone Number [facility] [address] [place] [address], [place] [phone] * (ABNORMAL) PROTIME/INR, VENOUS (02/20/2019 7:42 AM CLINICAL REVIEWER) PROTIME 16.4(H) 9.6 - 12.2 SEC 02/20/2019 8:[address] [facility] INR 1.5 02/20/2019 8:20 AM [facility] Comment: Recommended INR Therapeutic Goals: 2.0-3.0 Routine Therapy 2.5-3.5 Mechanical Prosthetic Valves (High Risk) 3.0-4.0 Acute ME (to prevent Systemic Embolism) The INR is used only for patients on stable oral anticoagulant therapy. It makes no significant contribution to the diagnosis or treatment of patients whose Protime is prolonged for other reasons. 02/20/2019 7:42 AM CLINICAL REVIEWER us Dale Beltrán MD LABORATORY Final Result Performing Organization Address [facility] Co de Phone Number [facility] [address] [place] [address], [place] [phone] documented in this encounter Visit Diagnoses Diagnosis Varicose veins of right lower extremity- Primary Claudication, intermittent Peripheral vascular disease, unspecified Atrial fibrillation, chronic (CMS/HCC HHS/HCC) Atrial fibrillation Presence of IVC filter Other postprocedural status documented in this encounter Additional Health Concerns Infection Onset Date Last Indicated Resolved Time MRSA 10/24/2016 10/24/2016 02/20/2019 9:17 AM CLINICAL REVIEWER COVID-19 Rule Out 11/03/2019 11/03/2019 11/04/2019 8:34 PM CDT COVID-19 Rule Out 03/28/2020 03/28/2020 03/28/2020 7:38 AM CLINICAL REVIEWER COVID-19 Rule Out 09/28/2020 09/28/2020 09/28/2020 4:03 PM CDT COVID-19 Rule Out 11/14/2023 11/14/2023 11/14/2023 11:27 AM CDT COVID-19 Confirmed 11/14/2023 11/14/2023 12:32 AM CDT Respiratory Rule Out 06/22/2024 06/22/2024 025 9:34 AM CDT documented as of this encounter Care Teams Antiquer Relationship Specialty Start Date End Date Jill Nesbitt NP [address] [address] PCP - General NURSE PRACTITIONER 03/18/17 01/15/21 [place] [address] [facility]. [address] [place] [address] PCP - General FAMILY PRACTICE 01/16/21 Nguyễn Rice MD [address] [address] Wayne Stock Or Delivery Clerk CARDIOVASCULAR DISEASE 08/17/15 Petr Tyson MD [address] [address] Consulting Physician UROLOGY 02/17/19 Koby Moffett MD [address] [place] [address] [place] [address] Referring Physician OTOLARYNGOLOGY 10/23/19 Nivia Ag, RN [address] [place] [address] Tinsel Machine Operator (Ambulatory) REGISTERED NURSE 09/28/20 11/03/20 documented as of this encounter
--- OUTSIDE RECORDS SUMMARY | 2024-10-18 01:22 | XMS_ITS | Encounter Summary ---
Author Organization [facility] Address [facility] [place] [address] Care Team Providers Care Assistant Field Hockey Coach Name Role Phone Nguyễn Rice MD Unavailable [phone] Marcos Oconnor MD Primary Care Provider Unavaila ble Mckenzie Arshad Primary Care Provider Unava ilMckenzie Lundberg Primary Care Provider Unava ilable Jill Nesbitt KNIFE SETTER ASSEMBLER Primary Care Provider Unav Petr Marie MD Unavailable [phone] Koby Moffett MD Unavailable Nivia Ag RN Unavailable [phone] Mirela Mai MD Primary Care Provider [phone] Encounter Details Date Type Department Care Team (Late st Contact Info) Description 12/01/2015 Abstract [facility] AT [address] [address] Mohan Waters MA Social History Tobacco Use Types Packs/Day Years Used Date Smoking Tobacco: Former Comments Unknown Sex and Gender Information Value Date Recorded Sex Assigned at Female 06/10/2018 6:40 PM CDT Legal Sex Female 11:35 PM CDT Gender Identity Female 06/10/2018 6:40 PM CDT Sexual Orientation Straight 08/13/2018 10 :21 AM CDT documented as of this encounter Progress Notes * JOHNATHON Escobedo- - 12/02/2015 11:37 AM CDT PG pt send letter continue current meds documented in this encounter Plan of Treatment Upcoming Encounters Date Type Department Care Team (Late st Contact Info) Description 11/09/2024 10:30 AM CDT Office Visit [facility] [address] [place] [phone] Deejay Hermosillo DO 3 [facility] [address] [place], [place] [phone] 11/12/2024 8:20 AM CDT Office Visit [facility] [address] [place] [phone] [place] [address] [facility]. [address] [place], [place] [phone] 02/15/2025 11:45 AM SALES AND OPERATIONS TRAINEE Office Visit [facility] [address] [place] [phone] Nguyễn Rice MD Three [facility]. [address] [place] [address] 06/16/2025 10:30 AM CDT Office Visit [facility] [address] [place] [address] Dale Beltrán MD Three [facility]. [address] [place], [place] [address] documented as of this encounter Procedures Procedure Name Priority Date/Time Associated Diagnosis Comments BASIC METABOLIC PANEL Routine 12/01/2015 documented in this encounter Results * BASIC METABOLIC PANEL (12/01/2015) SODIUM S/P/B 140 POTASSIUM S/P/B 4.1 CO2 31 CHLORIDE S/P/B 107 GLUCOSE 102 CALCIUM S/P/B 9.2 BUN 23 CREATININE S/P/B 1.21 EGFR NON-AFR. AMER. 46 12/01/2015 us Doc [facility] Abstract LABORATORY Final Result documented in this encounter Visit Diagnoses Not on filedocumented in this encounter Additional Health Concerns Infection Onset Date Last Indicated Resolved Time MRSA 10/24/2016 10/24/2016 02/20/2019 9:17 AM SALES AND OPERATIONS TRAINEE COVID-19 Rule Out 11/03/2019 11/03/2019 11/04/2019 8:34 PM CDT COVID-19 Rule Out 03/28/2020 03/28/2020 03/28/2020 7:38 AM SALES AND OPERATIONS TRAINEE COVID-19 Rule Out 09/28/2020 09/28/2020 09/28/2020 4:03 PM CDT COVID-19 Rule Out 11/14/2023 11/14/2023 11/14/2023 11:27 AM CDT COVID-19 Confirmed 11/14/2023 11/14/2023 12:32 AM CDT Respiratory Rule Out 06/22/2024 06/22/2024 025 9:34 AM CDT documented as of this encounter Care Teams Assistant Field Hockey Coach Relationship Specialty Start Date End Date Marcos Oconnor MD [address] [facility] [address] [place] [address] PCP - General FAMILY PRACTICE 08/17/15 02/26/16 M[address] Arshad APNP [address] [facility] [address] [place] [address] PCP - General CHUTE TAPPER 03/18/16 03/17/17 Mckenzie Arshad APNP [address] [place] [address] PCP - General 02/27/16 03/17/16 Jill Nesbitt NP [facility]. [address] [address] PCP - General NURSE PRACTITIONER 03/18/17 01/15/21 [place] [address] [address] [place] [address] PCP - General FAMILY PRACTICE 01/16/21 Nguyễn Rice MD [facility]. [address] [address] [place] [employer] I Assembler CARDIOVASCULAR DISEASE 08/17/15 Petr Tyson MD [address] [address] Consulting Physician UROLOGY 02/17/19 Koby Moffett MD [address] [place] [address] Referring Physician OTOLARYNGOLOGY 10/23/19 Nivia Ag, RN [address] [place] [address] Senior Sustainability Consultant (Ambulatory) REGISTERED NURSE 09/28/20 11/03/20 documented as of this encounter
--- OUTSIDE RECORDS SUMMARY | 2024-10-18 01:22 | XMS_ITS | Encounter Summary ---
Author Organization [facility] Address [address] [place] [address] Care Team Providers Care Open Hearth Furnace Operator Name Role Phone Nguyễn Rice MD Unavailable [phone] Jill Nesbitt DIVISIONAL STOREKEEPER Primary Care Provider Unav Petr Marie MD Unavailable Koby Moffett MD Unavailable Nivia Ag RN Unavailable [phone] Mirela Mai MD Primary Care Provider [phone] Encounter Details Date Type Department Care Team (Late st Contact Info) Description 08/15/[address]RI[address] [facility] - [address] [place] [address] Scanned, Documents Social History Tobacco [...] on file documented as of this encounter Progress Notes * Danika, Documents - 08/15/2018 12:00 AM CDT JANNET LUNA MD: ACCT: [id number] ADMIT/SERVICE DATE: 07/19/17 DISCHARGE DATE: 08/15/17 : 1945 PT TYPE: DIS RCR SEX: F ORD SITE: [facility] CHART DOCUMENT REHABILITATION DISCHARGE SUMMARY THE PATIENT WAS SEEN IN PHYSICAL THERAPY FROM 05/17/17 TO 07/19/17 FOR A TOTAL OF 18 VISITS. THE PATIENT CONTINUED TO REPORT VARYING PAIN LEVEL WITH PT INTERVENTION. THE PATIENT HAD NOTED ON 07/12 A DECLINE IN HER PAIN LEVEL; HOWEVER, ON 07/19/17 NOTED AN INCREASE IN HER PAIN LEVEL. THE PATIENT INDICATED THAT SHE HAD DIFFICULTY AMBULATING BECAUSE OF INCREASING PAIN. THE PATIENT'S OVERALL STATUS FLUCTUATED AND WAS RECOMMENDED TO RETURN TO PHYSICIAN. THE PATIENT HAD DEMONSTRATED PROGRESSION TOWARDS GOALS, HOWEVER IN THE LAST WEEK OVERALL STATUS HAD DECLINED. HELD ON FURTHER PT INTERVENTION AT THAT TIME. NO FURTHER ORDERS WERE RECEIVED FROM PHYSICIAN. WILL DISCONTINUE THE PATIENT AND CLOSE CHART OUT. ELECTRONICALLY SIGNED BY MYRON WADE P.T. 08/15/2018 03:45 P / JOB NO: [id number] DOC NO: [id number] 08/15/2018 08/15/2018 02:24 P CC: documented in this encounter Plan of Treatment Upcoming Encounters Date Type Department Care Team (Late st Contact Info) Description 11/09/2024 10:30 AM CDT Office Visit [facility] Medical [facility] Pulmonology Specialty Clinic [address] [address] Deejay Hermosillo, DO 3 [facility] [address] [place] [address] 11/12/2024 8:20 AM CDT Office Visit [facility] Medical [facility] Family & Internal Medicine - [address] [phone] [place] [address] [facility]. [address] [place], [place] [address] 02/15/2025 11:45 AM DIMENSION WAREHOUSE SUPERVISOR Office Visit [facility] [address] [place] [phone] Nguyễn Rice MD [facility]. [address] [place], [place] [address] 06/16/2025 10:30 AM CDT Office Visit [facility] [address] [place] [phone] Dale Beltrán MD [facility] [address] [place], [place] [phone] documented as of this encounter Visit Diagnoses Not on filedocumented in this encounter Additional Health Concerns Infection Onset Date Last Indicated Resolved Time MRSA 10/24/2016 10/24/2016 02/20/2019 9:17 AM DIMENSION WAREHOUSE SUPERVISOR COVID-19 Rule Out 11/03/2019 11/03/2019 11/04/2019 8:34 PM CDT COVID-19 Rule Out 03/28/2020 03/28/2020 03/28/2020 7:38 AM DIMENSION WAREHOUSE SUPERVISOR COVID-19 Rule Out 09/28/2020 09/28/2020 09/28/2020 4:03 PM CDT COVID-19 Rule Out 11/14/2023 11/14/2023 11/14/2023 11:27 AM CDT COVID-19 Confirmed 11/14/2023 11/14/2023 12:32 AM CDT Respiratory Rule Out 06/22/2024 06/22/2024 025 9:34 AM CDT documented as of this encounter Care Teams Open Hearth Furnace Operator Relationship Specialty Start Date End Date Jill Nesbitt NP Three [address] [address] PCP - General NURSE PRACTITIONER 03/18/17 01/15/21 [place] [address] [facility] [address] [place] [address] PCP - General FAMILY PRACTICE 01/16/21 Nguyễn Rice MD [place] [address] [employer] Biomass Plant Technician CARDIOVASCULAR DISEASE 08/17/15 [place] [address] Consulting Physician UROLOGY 02/17/19 Koby Moffett MD [address] [place] [address] Referring Physician OTOLARYNGOLOGY 10/23/19 Nivia Ag, RN [address] [place] [address] Event Marketing Intern (Ambulatory) REGISTERED NURSE 09/28/20 11/03/20 documented as of this encounter
--- OUTSIDE RECORDS SUMMARY | 2024-10-18 01:22 | XMS_ITS | Referral Summary ---
Author Organization [facility] Address [address] [place] [address] Care Team Providers Care Cell Liner Name Role Phone Rosmery Mai MD Primary Care Provider [phone] Encounters Date Type Department Care Team Description 08/12/2024 Telephone [facility] Ophthalmology [address] [place] [address] Outpatient Health [address] [place] [address] Nahid Flores MD 08/12/2024 9:00 AM CDT Office Visit [facility] Ophthalmology [address] [place] [phone] Nahid Flores MD Dacryocystitis, acute, left (Primary [...] on file Legal Sex Female 8:54 AM CHILD & ADOLESCENT PSYCHIATRIST Gender Identity Not on file Sexual Orientation [...] of Treatment Not on file Insurance MEDICARE [facility] MEDICARE [employer]IG[employer] MEDICARE SUPPLEMENT INSURANCE MEDICARE [facility] MEDICARE SUPPLEMENT INSURANCE Care Teams Cell Liner Relationship Specialty Start Date End Date Rosmery Mai MD [address] [facility] [place] [address] PCP - General Internal Medicine 03/25/24
--- OUTSIDE RECORDS SUMMARY | 2024-10-18 01:22 | XMS_ITS | Clinical Summary ---
Author Organization [facility] Address [address] [place] [address] Care Team Providers Care Employment Representative Name Role Phone Rosmery Mai MD Primary Care Provider [phone] Allergies Active Allergy Reactions Criticality Noted Date [...] 08/12/2024 9:00 AM CDT Office Visit [facility] [address] [address] Nahid Flores MD Dacryocystitis, acute, left (Primary Dx) 08/12/2024 Telephone [facility] Op[facility]mology [address] [address] Nahid Flores MD from Last [...] on file Legal Sex Female 8:54 AM RESTAURANT MGR Gender Identity Not on file Sexual Orientation [...] Zoster Vaccine Completed 12/13/2021, 10/09/2021 Insurance MEDICARE [facility] MEDICARE CIG MEDICARE SUPPLEMENT INSURANCE MEDICARE [facility] MEDICARE SUPPLEMENT INSURANCE Care Teams Employment Representative Relationship Specialty Start Date End Date Rosmery Mai MD [facility] [place] [address] PCP - General Internal Medicine 03/25/24
--- OUTSIDE RECORDS SUMMARY | 2024-10-18 01:22 | XMS_ITS | Encounter Summary ---
Author Organization [facility] Address [address] [place] [address] Care Team Providers Care Bone Char Kiln Operator Name Role Phone Nguyễn Rice MD Unavailable [phone] Petr Tyson MD Unavailable [phone] Koby Moffett MD Unavailable Mirela Mai MD Primary Care Provider [phone] Encounter Details Date Type Department Care Team (Late st Contact Info) Description 09/12/2022 MyChart Message Enc [facility] Medical [facility] - [facility] [address] [place] [id number] Mychart, [facility] Provider Air Quality Message Social History Tobacco Use Types Packs/Day Years [...] In the last 10 days, have jay benitez been in contact with someone who was confirmed or suspected to have Coronavirus/COVID-19? No / Unsure 08/29/2022 9:16 AM CDT documented as of this encounter [...] Description 11/09/2024 10:30 AM CDT Office Visit [facility] Pul[facility] [address] [address] Deejay Hermosillo DO [address] [place] [address] [place] [address] 11/12/2024 8:20 AM CDT Office Visit [facility] Medical Group Family & Internal Medicine - [place] [address] [place] [phone] [place] [address] [facility]. [address] [place] [address] 02/15/2025 11:45 AM REGRADER Office Visit [facility] [address] [place] [address] Nguyễn Rice MD [facility]. [address] [place], [place] [id number] 06/16/2025 10:30 AM CDT Office Visit [facility] [address] [place] [address] Dale Beltrán MD [facility]. [address] [place], [place] [id number] documented as of this encounter Goals Goal [...] Total Score: 0 03/27/19 23 2:30 PM REGRADER documented as of this encounter Care Teams Bone Char Kiln Operator Relationship Specialty [place] [address] [facility]. [address] [place] [address] PCP - General FAMILY PRACTICE 01/16/21 Nguyễn Rice MD [address] [address] [place] Cleaner Touch Up Worker CARDIOVASCULAR DISEASE 08/17/15 Petr Tyson MD [facility]. [address] [address] Consulting Physician UROLOGY 02/17/19 Koby Moffett MD [address] [place] [address] [place] [address] Referring Physician OTOLARYNGOLOGY 10/23/19 documented as of this encounter
--- OUTSIDE RECORDS SUMMARY | 2024-10-18 01:22 | XMS_ITS | Encounter Summary ---
Author Organization [facility] Address [address] [place] [address] Care Team Providers Care Director Of Vendor Management Name Role Phone Nguyễn Rice MD Unavailable [phone] Marcos Oconnor MD Primary Care Provider Unavaila Kelley Murillo ANP- Unavailable Unavailab Mckenzie Suárez Primary Care Provider Unava Mckenzie Guerin Primary Care Provider UnaMarcos Jolly MD Primary Care Provider UnavailMarcos Palma MD Primary Care Provider UnavailMarcos Palma MD Primary Care Provider UnavailMarcos Palma MD Primary Care Provider UnavailMarcos Palma MD Primary Care Provider UnavailMarcos Palma MD Primary Care Provider UnavailMarcos Palma MD Primary Care Provider UnavailMarcos Palma MD Primary Care Provider UnavailMarcos Palma MD Primary Care Provider UnavailMarcos Palma MD Primary Care Provider UnavailMarcos Palma MD Primary Care Provider UnavailMarcos Palma MD Primary Care Provider UnavailMarcos Palma MD Primary Care Provider UnavailMarcos Palma MD Primary Care Provider UnavailMarcos Palma MD Primary Care Provider UnavailMarcos Palma MD Primary Care Provider UnavailMarcos Palma MD Primary Care Provider Unavaila Jill Nelson NP Primary Care Provider UnaPetr Stevens MD Unavailable [phone] Koby Moffett MD Unavailable Nivia Ag RN Unavailable [phone] Mirela Mai MD Primary Care Provider [phone] Encounter Details Date Type Department Care Team (Late st Contact Info) Description 06/21/2012 Abstract [facility] [address] [place] [address] , Mario Rogers MD Social History Tobacco Use Types Packs/Day Years Used Date Smoking Tobacco: Never Assessed Comments Unknown Sex and Gender Information Value [...] Description 11/09/2024 10:30 AM CDT Office Visit [facility] Pul[facility]ology Specialty Clinic [facility] [address] [place] [address] Deejay Hermosillo DO [address] [facility] [address] [place], [place] [address] 11/12/2024 8:20 AM CDT Office Visit [facility] Family & Internal Medicine - [place] [address] [place] [phone] [place] [address] [facility]. [address] [place] [address] 02/15/2025 11:45 AM MAPPING ENGINEER Office Visit [facility] [address] [place] [phone] Nguyễn Rice MD [facility] [address] [place] [address] 06/16/2025 10:30 AM CDT Office Visit [facility] [address] [place] [address] Dale Beltrán MD [address] [place] [address] documented as of this encounter Visit Diagnoses Not on filedocumented in this encounter Additional Health Concerns Infection Onset Date Last Indicated Resolved Time MRSA 10/24/2016 10/24/2016 02/20/2019 9:17 AM MAPPING ENGINEER COVID-19 Rule Out 11/03/2019 11/03/2019 11/04/2019 8:34 PM CDT COVID-19 Rule Out 03/28/2020 03/28/2020 03/28/2020 7:38 AM MAPPING ENGINEER COVID-19 Rule Out 09/28/2020 09/28/2020 09/28/2020 4:03 PM CDT COVID-19 Rule Out 11/14/2023 11/14/2023 11/14/2023 11:27 AM CDT COVID-19 Confirmed 11/14/2023 11/14/2023 12:32 AM CDT Respiratory Rule Out 06/22/2024 06/22/2024 025 9:34 AM CDT documented as of this encounter Care Teams Director Of Vendor Management Relationship Specialty Start Date End Date Marcos Oconnor MD [address] [place] [address] PCP - General FAMILY PRACTICE 08/17/15 02/26/16 Mckenzie Arshad APNP [facility] [address] [place] [address] PCP - General SCREW EYE ASSEMBLER 03/18/16 03/17/17 Mckenzie Arshad APNP [facility] [address] [place] [address] PCP - General 02/27/16 03/17/16 Marcos Oconnor MD [facility]. [facility] [address] [place] [address] PCP - General 07/20/15 08/16/15 Marcos Oconnor MD [address] [place] [address] PCP - General 07/12/15 07/19/15 Marcos Oconnor MD [address] [place] [address] PCP - General 06/30/15 07/11/15 Marcos Oconnor MD [address] [place] [address] PCP - General 04/07/15 06/29/15 Marcos Oconnor MD [address] [place] [address] PCP - General 02/24/15 04/06/15 Marcos Oconnor MD [address] [place] [address] PCP - General 01/18/15 02/23/15 Marcos Oconnor MD [address] [place] [address] PCP - General 05/21/14 01/17/15 Marcos Oconnor MD [address] [place] [address] PCP - General 10/28/13 05/20/14 Marcos Oconnor MD [address] [place] [address] PCP - General 09/24/13 10/27/13 Marcos Oconnor MD [address] [place] [address] PCP - General 09/22/13 09/23/13 Marcos Oconnor MD [address] [place] [address] PCP - General 09/08/13 09/21/13 Marcos Oconnor MD [address] [place] [address] PCP - General 05/26/13 09/07/13 Marcos Oconnor MD [address] [place] [address] PCP - General 03/03/13 05/25/13 Marcos Oconnor MD [address] [place] [address] PCP - General 01/26/13 03/02/13 Marcos Oconnor MD [facility] [address] [address] PCP - General 01/07/13 01/25/13 Marcos Oconnor MD [facility] [address] [address] PCP - General 12/30/12 01/06/13 Marcos Oconnor MD [facility] [address] [address] PCP - General 12/22/12 12/29/12 Jill Nesbitt NP [facility] [address] [address] PCP - General NURSE PRACTITIONER 03/18/17 01/15/21 [place] [address] [facility]. [address] [address] PCP - General FAMILY PRACTICE 01/16/21 Nguyễn Rice MD [facility]. [address] [address] [place] Advanced Manufacturing Engineer CARDIOVASCULAR DISEASE 08/17/15 Kelley Phan, [facility]. [address] [address] NURSE PRACTITIONER 08/17/15 08/17/15 Petr Tyson MD [facility]. [address] [address] Consulting Physician UROLOGY 02/17/19 Koby Moffett MD [address] [place] [address] [place] [address] Referring Physician OTOLARYNGOLOGY 10/23/19 Nivia Ag, RN [address] [place] [address] Digital Archivist (Ambulatory) REGISTERED NURSE 09/28/20 11/03/20 documented as of this encounter
[2024-10-18 01:23] LABS: Alanine Aminotransferase 18 U/L (6-35); Albumin Level 4.1 g/dL (3.5-5.1); Alkaline Phosphatase 90 U/L (38-126); Anion Gap 8 mmol/L (4-12); Aspartate Amino Transferase 30 U/L (14-36); Bilirubin,Total 1.0 mg/dL (0.2-1.3); Blood Urea Nitrogen 28 mg/dL (7-17); Calcium 9.3 mg/dL (8.4-10.2); Carbon Dioxide 28 mmol/L (22-30); Chloride 100 mmol/L (98-107); Estimated CRCL calculation 35 ml/min; Estimated Glomerular Filt Rate 37; Glucose 139 mg/dL (65-110); Lipase 64 U/L (23-300); Potassium 4.3 mmol/L (3.4-5.0); Sodium 136 mmol/L (137-145); Total Protein 8.3 g/dL (6.3-8.2)
--- NOTE | 2024-10-18 02:29 | ED_ITS ---
HPI - Abdominal Pain General Chief Complaint: Abdominal Pain Stated Complaint: abd pain Time Seen by Provider: 10/18/24 00:45 History of Present Illness HPI narrative: Patient here with abdominal pain, severe, with nausea, since she had a neurostimulator placed for a few days ago. She has AFib on warfarin but stopped her blood thinners for a few days for this surgery. Related Data Home Medications ?Medication ?Instructions ?Recorded ?Confirmed ?Last Taken ?Type albuterol 90 mcg/actuation aerosol 90 mcg inhalation Q4-6H PRN 10/01/24 10/14/24 10/14/24 History inhaler shortness of breath or wheezing atenolol 25 mg tablet 25 mg PO BID 10/01/24 10/14/24 10/14/24 History atorvastatin 40 mg tablet (Lipitor) 40 mg PO DAILY 10/01/24 10/14/24 10/13/24 History bumetanide 1 mg tablet 1 mg PO EVERY OTHER DAY 10/01/24 10/14/24 10/13/24 History cholestyramine 4 gram oral powder 4 g PO DAILY 10/01/24 10/05/24 Unknown History empagliflozin 10 mg tablet 10 mg PO DAILY 10/01/24 10/14/24 10/13/24 History famotidine 20 mg tablet 20 mg PO Q12H PRN indigestion 10/01/24 10/05/24 Unknown History fluticasone fur. 100 mcg-umeclid 1 inh inhalation DAILY 10/01/24 10/14/24 10/14/24 History 62.5 mcg-vilant 25 mcg inhalat.powder (Trelegy Ellipta) fluticasone propionate 50 1 spray intranasal DAILY 10/01/24 10/14/24 10/13/24 History mcg/actuation nasal spray,suspension gabapentin 100 mg capsule 100 mg PO BID 10/01/24 10/14/24 10/14/24 History hydrocodone 5 mg-acetaminophen 325 1 tablet PO Q8H PRN pain 10/01/24 10/14/24 10/14/24 04:30 History mg tablet losartan 50 mg tablet 75 mg PO DAILY 10/01/24 10/14/24 10/13/24 History montelukast 10 mg tablet 10 mg PO QHS 10/01/24 10/14/24 10/13/24 History omega 0-hqu-dop-fish oil 1,000 mg 1 cap PO DAILY 10/01/24 10/14/24 10/11/24 History (120 mg-180 mg) capsule (Fish Oil) ropinirole 2 mg tablet 2 mg PO BID 10/01/24 10/14/24 10/13/24 History warfarin 3 mg tablet 6 mg PO DIRECTED 10/01/24 10/14/24 10/08/24 History cholecalciferol (vitamin D3) 25 1,000 unit PO EVERY OTHER DAY 10/05/24 10/14/24 10/11/24 History mcg (1,000 unit) capsule cyanocobalamin (vitamin B-12) 100 100 mcg PO EVERY OTHER DAY 10/05/24 10/14/24 10/11/24 History mcg tablet ibuprofen 200 mg capsule 400 mg PO TID PRN pain 10/05/24 10/14/24 10/08/24 History multivitamin (Daily Multi-Vitamin 1 tablet PO DAILY 10/05/24 10/14/24 10/11/24 History tablet) Allergies Allergy/AdvReac Type Severity Reaction Status Date / Time lisinopril Allergy Unknown Verified 10/14/24 09:50 morphine Allergy Rash, Verified 10/14/24 09:50 SWELLING prednisone AdvReac Headache Verified 10/14/24 09:50 Review of Systems 2 Review of Systems: All systems reviewed & are unremarkable except as noted in HPI and below PMFSH Past Medical History Medical History HTN (hypertension) Afib COPD (chronic obstructive pulmonary disease) Arthritis Family History Family History Mother Hypertension Social History Social History Smoking packs per day: 1 Smoking cigarettes per day: 20.0 Years smoked: 30 Smoking pack-years: 30.00 Smoking status: Former smoker Tobacco type: cigarettes Smoking end date: 03/18/91 Alcohol intake: never Substance use: never Substance use type: does not use Living arrangements: with family Additional living arrangements comments: SON-PATRICE Spiritual care concerns: No Exam 2 Narrative: EXAMINATION OF ORGAN SYSTEMS/BODY AREAS: Constitutional: Vital signs per nursing GENERAL:[No acute distress, non-toxic appearing.] HEAD: Normal with no signs of head trauma. EYES: EOMI, conjunctiva normal ENT: Hearing grossly intact LUNGS: Nonlabored breathing. HEART: [Regular rate and rhythm] ABD: [Soft], tender all abdomen EXT: Normal range of motion SKIN: [No rashes or lesions.] NEURO: [Alert and oriented x 3. No gross focal sensory or strength deficits.] PSYCH: Normal affect Course Vital Signs Vital signs: Vital Signs Temperature 97.5 F L 10/18/24 00:08 Pulse Rate 67 10/18/24 00:08 Respiratory Rate 18 10/18/24 00:08 Blood Pressure 190/108 H 10/18/24 00:08 Pulse Oximetry 97 10/18/24 00:08 Oxygen Delivery Room Air 10/18/24 00:08 Temperature 97.5 F L 10/18/24 00:08 Pulse Rate 56 L 10/18/24 05:45 Respiratory Rate 17 10/18/24 05:45 Blood Pressure 165/91 H 10/18/24 04:31 Pulse Oximetry 96 10/18/24 05:45 Oxygen Delivery Room Air 10/18/24 00:08 MDM - Abdominal Pain MDM Narrative Medical decision making narrative: Patient here with abdominal pain, severe, with nausea, since she had a neurostimulator placed for a few days ago. She has AFib on warfarin but stopped her blood thinners for a few days for this surgery. She is diffusely tender on exam and appears to be quite uncomfortable, L obtain CTA to rule out mesenteric ischemia, or other cause of symptoms. CT reviewed by radiologist without any acute abnormality. Labs are all within acceptable limits including normal white count and lactic acid. On re-evaluation, patient is quite concerned that her pain was only controlled by the Dilaudid here, she had tried hydrocodone and oxycodone at home without any improvement. Her family arrived bedside is concerned that he is going to have to go back to work in a day and cannot care for her home, patient is unable to even get on and off her toilet without help. I will discuss with hospitalist about possible admission. She devices I speak with the neurosurgeon. Discussed with Dr. Mcbride, who states this can happen sometimes with nurse to be later causing thoracic pain, recommends starting gabapentin and Decadron, agreeable to admission on her service. Discussed with patient who was agreeable to plan Lab Data 10/18/24 00:44 10/18/24 00:44 Labs: Lab Results 10/18/24 10/18/24 Range/Units 00:44 03:19 WBC 9.8 (4.5-10.0) K/mm3 RBC 4.24 (4.2-5.4) M/mm3 Hgb 12.9 (12.0-15.0) g/dL Hct 41.1 (37.0-47.0) % MCV 96.9 (80-100) fl MCH 30.4 (26-34) pg MCHC 31.4 L (32-36) g/dl RDW 16.3 H (11.5-14.5) % Plt Count 204 (150-375) k/mm3 MPV 10.4 (7.4-10.4) fl Immature Gran % (Auto) 0.6 H (0-0.5) % Neut % (Auto) 78.4 H (45.5-73.1) % Lymph % (Auto) 12.7 L (18.3-44.2) % Mccreary % (Auto) 6.4 (2.6-8.5) % Eos % (Auto) 1.5 (0-4.4) % Baso % (Auto) 0.4 (0.2-1.2) % Lymph # (Auto) 1.24 (0.9-3.2) K/mm3 Mccreary # (Auto) 0.6 (0.1-0.6) K/mm3 Eos # (Auto) 0.2 (0-0.3) K/mm3 Baso # (Auto) 0.0 (0.0-0.1) K/mm3 Abs Immat Gran (auto) 0.06 H (0.00-0.031) K/mm3 Absolute Neuts (auto) 7.7 H (1.3-6.7) K/mm3 Absolute Nucleated RBC 0.000 (0.0-0.012) K/mm3 Nucleated RBC % 0.0 (0.0-0.2) % Sodium 136 L (137-145) mmol/L Potassium 4.3 (3.4-5.0) mmol/L Chloride 100 (98-107) mmol/L Carbon Dioxide 28 (22-30) mmol/L Anion Gap 8 (4-12) mmol/L BUN 28 H (7-17) mg/dL Creatinine 1.38 H (0.7-1.0) mg/dL Estim Creat Clear Calc 35 ml/min Estimated GFR 37 L (59 - ) Glucose 139 H (65-110) mg/dL Lactic Acid 1.4 (0.7-2.0) mmol/L Calcium 9.3 (8.4-10.2) mg/dL Total Bilirubin 1.0 (0.2-1.3) mg/dL AST 30 (14-36) U/L ALT 18 (6-35) U/L Alkaline Phosphatase 90 (38-126) U/L Total Protein 8.3 H (6.3-8.2) g/dL Albumin 4.1 (3.5-5.1) g/dL Lipase 64 (23-300) U/L Urine Color Yellow (Yellow) Urine Appearance Clear (Clear) Urine pH 6.5 (5.0-9.0) Ur Specific Estill 1.017 (1.001-1.035) Urine Protein 3+ H (Negative) mg/dL Urine Glucose (UA) 3+ H (Negative) mg/dL Urine Ketones Negative (Negative) mg/dL Ur Blood (Man) Negative (Negative) Urine Nitrate Negative (Negative) Urine Bilirubin Negative (Negative) Urine Urobilinogen 0.2 (<2.0) mg/dL Leukocyte Esterase Rfl Negative (Negative) AILYN/UL Urine RBC 0-2 (0-2) /hpf Urine WBC 0-5 (0-3) /hpf Ur Squamous Epith Cells None seen (Few) /hpf Urine Bacteria None seen /hpf Urine Casts 0-2 Discharge Plan Discharge Clinical Impression: Abdominal pain Patient Disposition: Still a Patient Condition: Stable Patient Language: [place] Prescriptions: New dicyclomine 20 mg tablet 20 mg PO TID PRN (Reason: abdominal pain) Qty: 30 0RF pantoprazole [Protonix] 40 mg tablet,delayed release (DR/EC) 40 mg PO HS 28 Days Qty: 28 0RF No Action albuterol 90 mcg/actuation aerosol 90 mcg inhalation Q4-6H PRN (Reason: shortness of breath or wheezing) atenolol 25 mg tablet 25 mg PO BID atorvastatin [Lipitor] 40 mg tablet 40 mg PO DAILY Patient Comments: HS bumetanide 1 mg tablet 1 mg PO EVERY OTHER DAY cholestyramine 4 gram powder 4 g PO DAILY Rx Instructions: administer w/meal; avoid other meds within 1hr before or 4-6hr after dose empagliflozin 10 mg tablet 10 mg PO DAILY famotidine 20 mg tablet 20 mg PO Q12H PRN (Reason: indigestion) omega 8-kbq-zqr-fish oil [Fish Oil] 1,000 (120-180) mg capsule 1 cap PO DAILY fluticasone propionate 50 mcg/actuation spray,suspension 1 spray intranasal DAILY Rx Instructions: administer into each nostril gabapentin 100 mg capsule 100 mg PO BID hydrocodone-acetaminophen 5-325 mg tablet 1 tablet PO Q8H PRN (Reason: pain) losartan 50 mg tablet 75 mg PO DAILY Patient Comments: QAM montelukast 10 mg tablet 10 mg PO QHS ropinirole 2 mg tablet 2 mg PO BID Trelegy Ellipta 100-62.5-25 mcg blister with device 1 inh inhalation DAILY Patient Comments: QAM warfarin 3 mg tablet 6 mg PO DIRECTED Patient Comments: 6MG SAT AND SATURDAY AND 4.5MG ALL OTHER DAYS ibuprofen 200 mg capsule 400 mg PO TID PRN (Reason: pain) multivitamin [Daily Multi-Vitamin] Tablet 1 tablet PO DAILY cyanocobalamin (vitamin B-12) 100 mcg tablet 100 mcg PO EVERY OTHER DAY cholecalciferol (vitamin D3) 25 mcg (1,000 unit) capsule 1,000 unit PO EVERY OTHER DAY oxycodone 5 mg tablet 5 mg PO Q6H PRN (Reason: pain) Qty: 28 0RF tizanidine 4 mg tablet 4 mg PO Q8H PRN (Reason: muscle spasticity) Qty: 30 0RF cephalexin 500 mg capsule 500 mg PO Q6H Qty: 12 0RF Follow-up/Referrals: Sergei,MD Mirela [Primary Care Provider] -
[2024-10-18 03:33] LABS: Add Urine Microscopic? YES; Appearance Urine Clear (Clear); Glucose Urine UA 3+ mg/dL (Negative); Leukocyte Esterase Ur Negative LEU/UL (Negative); Nitrate Urine Negative (Negative); Non Pathogenic Casts 0-2; Specific Grav Ur 1.017 (1.001-1.035)
[2024-10-18] MEDS: ONDANSETRON INJ 4 MG/2 ML VIAL IV PUSH (03:36)
[2024-10-18] MEDS: PANTOPRAZOLE SODIUM IV 40 MG VIAL IV PUSH (05:39)
--- NOTE | 2024-10-18 07:02 | ADMGEN ---
This patient, Nkechi Luna, was admitted to 2 Medical Room 242-. Patient/family oriented to hospital policies and general routines including ID bracelet, bed and alarms, visiting hours, pain management, procedures, bathroom and other care routines, personal items, smoking policy, room service/diet, and visiting hours. Information on how to activate the Rapid Response Team has been discussed. Patient/Family are encouraged to report perceived risks to care and to ask questions if they do not understand what they are told or what they should do.
[2024-10-18] MEDS: GABAPENTIN 300 MG CAPSULE PO ×3 (08:02→17:09)
[2024-10-18] MEDS: oxyCODONE HCL (*CRX) 5 MG TAB IR PO ×2 (08:02→13:35)
[2024-10-18] MEDS: ACETAMINOPHEN 500 MG TABLET 1000 MG PO ×3 (09:25→20:37)
[2024-10-18] MEDS: LOSARTAN POTASSIUM 25 MG TABLET 75 MG PO (09:26)
[2024-10-18] MEDS: EMPAGLIFLOZIN 10 MG TABLET PO (09:26)
[2024-10-18] MEDS: ENOXAPARIN 40 MG/0.4 ML SYRINGE SUB-Q (09:27)
[2024-10-18] MEDS: FLUTICASONE/UMECLIDIN/VILANTER 100-62.5-25 MCG ELLIPTA 1 PUFF INHALATION (09:28)
--- NOTE | 2024-10-18 12:46 | P.HP_ITS ---
H&P: HPI History of Present Illness Date/Time: 10/18/24 12:46 Chief Complaint: abdominal pain Narrative: Ms. Luna is an 79-year-old female with history COPD, atrial fibrillation on Coumadin, hypertension, and hyperlipidemia who underwent placement of a spinal cord stimulator on October 14. Surgery was uncomplicated, and she was discharged home the same day. On Saturday, she developed fairly significant bilateral abdominal pain which worsened in to last night, prompting a visit to the emergency room. A CTA of the abdomen pelvis was obtained which did not show any acute abnormality per the radiology report. She was admitted this morning for pain control. She denies any significant incisional pain or any new pain or paresthesias in the legs. She has been ambulating well. She has been tolerating oral intake without nausea or vomiting. She has been voiding spontaneously. She has had some constipation but did take magnesium citrate to help her have a bowel movement since surgery. Review of Systems Review of Systems: All systems reviewed & are unremarkable except as noted in HPI and below PMFSH Past Medical History Medical History HTN (hypertension) Afib COPD (chronic obstructive pulmonary disease) Arthritis Family History Family History Mother Hypertension Social History Social History Smoking packs per day: 1 Smoking cigarettes per day: 20.0 Years smoked: 30 Smoking pack-years: 30.00 Smoking status: Former smoker Tobacco type: cigarettes Smoking end date: 03/18/91 Alcohol intake: never Substance use: never Substance use type: does not use Lack of Transportation: No Lack of Food: Never True Current Housing: I Have Housing Concerned About Future Housing: No Difficulty Paying Gas/Electric Bills: No Difficulty Paying for Meds: No Currently Unemployed: No Education: High School Diploma/GED Difficulty w/ Childcare or Family Care: No Living arrangements: with family Additional living arrangements comments: [facility] Spiritual care concerns: No Meds Home Medications and Allergies Home Medications ?Medication ?Instructions ?Recorded ?Confirmed ?Type albuterol 90 mcg/actuation aerosol 90 mcg inhalation Q4-6H PRN 10/01/24 10/18/24 History inhaler shortness of breath or wheezing atenolol 25 mg tablet 25 mg PO BID 10/01/24 10/18/24 History atorvastatin 40 mg tablet (Lipitor) 40 mg PO QHS 10/01/24 10/18/24 History bumetanide 1 mg tablet 1 mg PO EVERY OTHER DAY 10/01/24 10/18/24 History cholestyramine 4 gram oral powder 4 g PO DAILY 10/01/24 10/18/24 History empagliflozin 10 mg tablet 10 mg PO DAILY 10/01/24 10/18/24 History famotidine 20 mg tablet 20 mg PO Q12H PRN indigestion 10/01/24 10/18/24 History fluticasone fur. 100 mcg-umeclid 1 inh inhalation DAILY 10/01/24 10/18/24 History 62.5 mcg-vilant 25 mcg inhalat.powder (Trelegy Ellipta) fluticasone propionate 50 1 spray intranasal DAILY 10/01/24 10/18/24 History mcg/actuation nasal spray,suspension gabapentin 100 mg capsule 100 mg PO BID 10/01/24 10/18/24 History hydrocodone 5 mg-acetaminophen 325 1 tablet PO Q8H PRN pain 10/01/24 10/18/24 History mg tablet losartan 50 mg tablet 75 mg PO DAILY 10/01/24 10/18/24 History montelukast 10 mg tablet 10 mg PO QHS 10/01/24 10/18/24 History omega 6-byl-pnp-fish oil 1,000 mg 1 cap PO DAILY 10/01/24 10/18/24 History (120 mg-180 mg) capsule (Fish Oil) ropinirole 2 mg tablet 2 mg PO BID 10/01/24 10/18/24 History warfarin 3 mg tablet 6 mg PO DIRECTED 10/01/24 10/18/24 History cholecalciferol (vitamin D3) 25 1,000 unit PO EVERY OTHER DAY 10/05/24 10/18/24 History mcg (1,000 unit) capsule cyanocobalamin (vitamin B-12) 100 100 mcg PO EVERY OTHER DAY 10/05/24 10/18/24 History mcg tablet ibuprofen 200 mg capsule 400 mg PO TID PRN pain 10/05/24 10/18/24 History multivitamin (Daily Multi-Vitamin 1 tablet PO DAILY 10/05/24 10/18/24 History tablet) cephalexin 500 mg capsule 500 mg PO Q6H #12 caps 10/14/24 10/18/24 Rx oxycodone 5 mg tablet 5 mg PO Q6H PRN pain #28 tabs 10/14/24 10/18/24 Rx tizanidine 4 mg tablet 4 mg PO Q8H PRN muscle spasticity 10/14/24 10/18/24 Rx #30 tabs dicyclomine 20 mg tablet 20 mg PO TID PRN abdominal pain 10/18/24 Rx #30 tabs pantoprazole 40 mg tablet,delayed 40 mg PO HS 4 weeks #28 tabs 10/18/24 Rx release (Protonix) Allergies Allergy/AdvReac Type Severity Reaction Status Date / Time lisinopril Allergy Unknown Verified 10/18/24 08:04 morphine Allergy Rash, Verified 10/18/24 08:04 SWELLING prednisone AdvReac Headache Verified 10/18/24 08:04 Vital Signs Vital Signs - 24 hr 10/18/24 00:08 10/18/24 01:01 10/18/24 01:18 Temperature 97.5 F L Pulse Rate 67 62 58 L Respiratory Rate 18 12 13 Blood Pressure 190/108 H 159/74 H Pulse Oximetry 97 90 91 Oxygen Delivery Room Air 10/18/24 01:30 10/18/24 01:31 10/18/24 01:45 Temperature Pulse Rate 57 L 58 L 58 L Respiratory Rate 16 17 19 Blood Pressure 144/81 H Pulse Oximetry 97 94 90 Oxygen Delivery 10/18/24 02:00 10/18/24 02:01 10/18/24 02:15 Temperature Pulse Rate 55 L 58 L 66 Respiratory Rate 17 15 17 Blood Pressure 167/85 H Pulse Oximetry 90 94 97 Oxygen Delivery 10/18/24 02:30 10/18/24 02:31 10/18/24 03:00 Temperature Pulse Rate 52 L 54 L 58 L Respiratory Rate 14 14 15 Blood Pressure 155/97 H Pulse Oximetry 94 93 96 Oxygen Delivery 10/18/24 03:15 10/18/24 03:30 10/18/24 03:45 Temperature Pulse Rate 55 L 63 59 L Respiratory Rate 17 13 15 Blood Pressure Pulse Oximetry 96 96 Oxygen Delivery 10/18/24 03:55 10/18/24 04:00 10/18/24 04:01 Temperature Pulse Rate 59 L 57 L 54 L Respiratory Rate 13 16 18 Blood Pressure 166/78 H 156/88 H Pulse Oximetry 91 Oxygen Delivery 10/18/24 04:15 10/18/24 04:30 10/18/24 04:31 Temperature Pulse Rate 57 L 62 62 Respiratory Rate 15 15 19 Blood Pressure 165/91 H Pulse Oximetry Oxygen Delivery 10/18/24 04:45 10/18/24 05:05 10/18/24 05:15 Temperature Pulse Rate 59 L 59 L 60 Respiratory Rate 14 16 14 Blood Pressure Pulse Oximetry 96 Oxygen Delivery 10/18/24 05:30 10/18/24 05:45 10/18/24 08:00 Temperature Pulse Rate 60 56 L Respiratory Rate 12 17 Blood Pressure Pulse Oximetry 96 Oxygen Delivery Room Air 10/18/24 09:05 10/18/24 09:23 10/18/24 09:25 Temperature Pulse Rate 61 61 Respiratory Rate Blood Pressure 168/92 H Pulse Oximetry 96 97 Oxygen Delivery Room Air Exam Narrative: Incisions with ecchymosis but no drainage, erythema. Skin glue in place Unless otherwise stated above, the patient's physical exam is as follows: General: -Well developed and well nourished. No a cute distress. Cooperative with exam. Mental status: -Awake and oriented to person, place, an d time. Integumentary: -No obvious skin lesions or masses Motor: -Muscle tone normal without spasticity o f flaccidity. No atrophy. No fasciculations. -No pronator drift -Right upper extremity: deltoid 5/5, bic eps 5/5, triceps 5/5, wrist extensors 5/5, wrist flexors 5/5, intrinsics 5/5 -Left upper extremity: deltoid 5/5, kae ps 5/5, triceps 5/5, wrist extensors 5/5, wrist flexors 5/5, intrinsics 5/5 -Right lower extremity: iliopsoas 5/5, q uadriceps 5/5, hamstrings 5/5, tibialis anterior 5/5, gastroc-soleus 5/5, EHL 5/5 -Left lower extremity: iliopsoas 5/5, qu adriceps 5/5, hamstrings 5/5, tibialis anterior 5/5, gastroc-soleus 5/5, EHL 5/5 Sensory: -Intact to light touch throughout -Normal proprioception throughout Reflexes: -1-2+ DTR's throughout -No Lau's, clonus, or Babinski bilat erally H&P: Results Labs Labs: Short CBC 10/18/24 Range/Units 00:44 WBC 9.8 (4.5-10.0) K/mm3 Hgb 12.9 (12.0-15.0) g/dL Hct 41.1 (37.0-47.0) % Plt Count 204 (150-375) k/mm3 BMP 10/18/24 00:44 Sodium 136 L Potassium 4.3 Chloride 100 Carbon Dioxide 28 BUN 28 H Creatinine 1.38 H Glucose 139 H Calcium 9.3 Liver Function 10/18/24 Range/Units 00:44 Total Bilirubin 1.0 (0.2-1.3) mg/dL AST 30 (14-36) U/L ALT 18 (6-35) U/L Alkaline Phosphatase 90 (38-126) U/L Albumin 4.1 (3.5-5.1) g/dL Urine 10/18/24 Range/Units 03:19 Urine Color Yellow (Yellow) Urine Appearance Clear (Clear) Urine pH 6.5 (5.0-9.0) Ur Specific [place] 1.017 (1.001-1.035) Urine Protein 3+ H (Negative) mg/dL Urine Glucose (UA) 3+ H (Negative) mg/dL Assessment and Plan Assessment and plan (1) Status post insertion of spinal cord stimulator: Code(s): Z96.89 - Presence of other specified functional implants Status: Acute (2) Thoracic radiculopathy: Code(s): M54.14 - Radiculopathy, thoracic region Status: Acute Plan Ms. Luna is an 79-year-old female who underwent placement of a [employer] spinal cord stimulator 4 days ago who developed fairly significant thoracic radiculopathy on postoperative day 2 and prompted admission to the hospital early this morning. She otherwise denies any new neurologic complaints and remains neurologically stable on physical exam. Her incisions have some bruising but otherwise appear intact with skin glue in place. We discussed that this is not an uncommon symptom that people developed after having a stimulator placed and that it will resolve with time. I have started her on high-dose steroids as well as increased her home gabapentin dose to help with pain in the interim. I have started her on Lovenox. We will also work on her bowel regimen and have physical therapy work with her tomorrow.
[2024-10-18] MEDS: SENNA/DOCUSATE SODIUM TABLET 1 TAB PO (17:09)
[2024-10-18] MEDS: ATORVASTATIN 40 MG TABLET PO (20:37)
[2024-10-18] MEDS: MONTELUKAST SODIUM 10 MG TABLET PO (20:37)
[2024-10-19] MEDS: ACETAMINOPHEN 500 MG TABLET 1000 MG PO ×2 (02:44→08:24)
[2024-10-19 04:32] VITALS: BP 145/89; PULSE 61; RESP 18; TEMP 36.6; O2SAT 95
[2024-10-19] MEDS: FLUTICASONE/UMECLIDIN/VILANTER 100-62.5-25 MCG ELLIPTA 1 PUFF INHALATION (07:22)
[2024-10-19 07:23] VITALS: PULSE 50; RESP 20; O2SAT 93
[2024-10-19 08:23] VITALS: BP 173/85; PULSE 62; O2SAT 95
[2024-10-19 08:24] VITALS: PULSE 62
[2024-10-19] MEDS: EMPAGLIFLOZIN 10 MG TABLET PO (08:24)
[2024-10-19] MEDS: SENNA/DOCUSATE SODIUM TABLET 1 TAB PO (08:24)
[2024-10-19] MEDS: LOSARTAN POTASSIUM 25 MG TABLET 75 MG PO (08:24)
[2024-10-19] MEDS: ENOXAPARIN 40 MG/0.4 ML SYRINGE SUB-Q (08:24)
[2024-10-19] MEDS: GABAPENTIN 300 MG CAPSULE PO ×2 (08:24→12:04)
[2024-10-19] MEDS: CHOLESTYRAMINE (W/ SUGAR) 4 GM POWD.PACK PO (08:25)
--- NOTE | 2024-10-19 12:21 | WPDNEUROSGPN ---
Progress Note: A&P Assessment and Plan (1) Thoracic radiculopathy: Code(s): M54.14 - Radiculopathy, thoracic region Status: Acute Plan Patient's thoracic radicular pain has improved. She remains neurologically intact. We will plan for discharge today and she will follow-up with Dr. Mcbride as scheduled. Patient is in agreement and has no unanswered questions. Time Spent With Patient Time with patient: less than 15 minutes Subjective Date/time seen: 10/19/24 12:21 Interval history: Nkechi reports that she is doing well today. She has had significant improvement in her radicular pain with the steroids and gabapentin. She states that she feels good enough to go home today. Exam Narrative: Incisions with ecchymosis but no drainage, erythema. Skin glue in place Unless otherwise stated above, the patient's physical exam is as follows: General: -Well developed and well nourished. No acute distress. Cooperative with exam. Mental status: -Awake and oriented to person, place, and time. Integumentary: -No obvious skin lesions or masses Motor: -Muscle tone normal without spasticity of flaccidity. No atrophy. No fasciculations. -No pronator drift -Right upper extremity: deltoid 5/5, biceps 5/5, triceps 5/5, wrist extensors 5/5, wrist flexors 5/5, intrinsics 5/5 -Left upper extremity: deltoid 5/5, biceps 5/5, triceps 5/5, wrist extensors 5/5, wrist flexors 5/5, intrinsics 5/5 -Right lower extremity: iliopsoas 5/5, quadriceps 5/5, hamstrings 5/5, tibialis anterior 5/5, gastroc-soleus 5/5, EHL 5/5 -Left lower extremity: iliopsoas 5/5, quadriceps 5/5, hamstrings 5/5, tibialis anterior 5/5, gastroc-soleus 5/5, EHL 5/5 Sensory: -Intact to light touch throughout -Normal proprioception throughout Reflexes: -1-2+ DTR's throughout -No Lau's, clonus, or Babinski bilaterally Objective Data Vital Signs Vital Signs: Vital Signs - 24 hr 10/18/24 13:58 10/18/24 20:00 10/18/24 20:39 Temperature 97.9 F Pulse Rate 58 L 65 Respiratory Rate 18 Blood Pressure 160/83 H Pulse Oximetry 95 Oxygen Delivery Room Air 10/18/24 21:13 10/19/24 04:32 10/19/24 07:23 Temperature 98.1 F 98 F Pulse Rate 60 61 50 L Respiratory Rate 18 18 20 Blood Pressure 170/96 H 145/89 H Pulse Oximetry 95 95 93 Oxygen Delivery Room Air 10/19/24 07:23 10/19/24 08:00 10/19/24 08:23 Temperature Pulse Rate 50 L 62 Respiratory Rate 20 Blood Pressure 173/85 H Pulse Oximetry 95 Oxygen Delivery Room Air 10/19/24 08:24 10/19/24 08:38 10/19/24 11:37 Temperature Pulse Rate 62 Respiratory Rate Blood Pressure Pulse Oximetry Oxygen Delivery Room Air Room Air Intake/Output Intake/Output: Intake & Output 10/16/24 10/17/24 10/18/24 10/19/24 23:59 23:59 23:59 23:59 Intake Total 420 880 Output Total 500 Balance -80 880 Meds/Results Medications: Active Medications Generic Name Dose Route Start Last Admin Trade Name Freq PRN Reason Stop Dose Admin Acetaminophen 1,000 mg 10/18/24 09:00 10/19/24 08:24 Acetaminophen 500 Mg Tablet PO 1,000 mg Q6H SHARATH Administration Albuterol 1 puff 10/18/24 09:13 Albuterol Sulfate (*Sp) Aerosol 1 Puff INHALATION Q4HRT PRN shortness of breath or wheezing Atenolol 25 mg 10/18/24 09:00 10/19/24 08:24 Atenolol 25 Mg Tablet PO 25 mg Q12HR SHARATH Administration Atorvastatin Calcium 40 mg 10/18/24 21:00 10/18/24 20:37 Atorvastatin 40 Mg Tablet PO 40 mg QHS SHARATH Administration Bumetanide 1 mg 10/18/24 09:00 10/18/24 09:26 Bumetanide 1 Mg Tablet PO Not Given Q48H [facility] Cholestyramine Resin 4 gm 10/19/24 09:00 10/19/24 08:25 Cholestyramine (W/ Sugar) 4 Gm Powd.Pack PO 4 gm QAM SHARATH Administration Dexamethasone 4 mg 10/18/24 12:00 10/19/24 12:04 Dexamethasone 4 Mg Tablet PO 4 mg Q6H SHARATH Administration Empagliflozin 10 mg 10/18/24 09:00 10/19/24 08:24 Empagliflozin 10 Mg Tablet PO 10 mg DAILY SHARATH Administration Enoxaparin Sodium 40 mg 10/18/24 09:00 10/19/24 08:24 Enoxaparin 40 Mg/0.4 Ml Syringe SUB-Q 40 mg DAILY SHARATH Administration Famotidine 20 mg 10/18/24 08:23 Famotidine 20 Mg Tablet PO Q12H PRN indigestion Fluticasone/Umeclidinium/Vilanterol 1 puff 10/18/24 09:00 10/19/24 07:22 Fluticasone/Umeclidin/Vilanter 100-62.5-25 Mcg Ellipta INHALATION 1 puff DAILYRT [facility] Administration Gabapentin 300 mg 10/18/24 09:00 10/19/24 12:04 Gabapentin 300 Mg Capsule PO 300 mg TID [facility] Administration Losartan Potassium 75 mg 10/18/24 09:00 10/19/24 08:24 Losartan Potassium 25 Mg Tablet PO 75 mg DAILY [facility] Administration Methocarbamol 750 mg 10/18/24 08:20 Methocarbamol 750 Mg Tablet PO QID PRN Muscle Spasm Miscellaneous Information 0 each 10/18/24 00:01 Nonformulary Drug (Cyanocobalamin (Vitamin B-12) 100 Mcg Tablet)- Clarify B12 Dose - 250mc XX 11/17/24 00:00 CLARIFY [facility] Montelukast Sodium 10 mg 10/18/24 21:00 10/18/24 20:37 Montelukast Sodium 10 Mg Tablet PO 10 mg QHS [facility] Administration Non-Formulary Medication 100 mcg 10/18/24 08:30 Cyanocobalamin (Vitamin B-12) PO 11/17/24 08:29 Q48HR SHARATH Oxycodone HCl 10 mg 10/18/24 08:20 Oxycodone Hcl (*Crx) 5 Mg Tab Ir PO Q4H PRN Pain Rated 7-10 Oxycodone HCl 5 mg 10/18/24 08:20 10/18/24 13:35 Oxycodone Hcl (*Crx) 5 Mg Tab Ir PO 5 mg Q4H PRN Administration Pain Rated 4-6 Polyethylene Glycol 17 gm 10/18/24 12:53 Polyethylene Glycol 3350 17 Gm Powd.Pack PO QAM PRN Constipation Ropinirole HCl 2 mg 10/18/24 09:00 10/19/24 08:24 Ropinirole Hcl 1 Mg Tablet PO 2 mg BID SHARATH Administration Senna/Docusate Sodium 1 tab 10/18/24 17:00 10/19/24 08:24 Senna/Docusate Sodium Tablet PO 1 tab BID SHARATH Administration Radiology Results: ITS Impressions Abdomen/Pelvis CTA 10/18/24 18:00 IMPRESSION: Multiple sub-6 mm pulmonary nodules, the patient is at high risk consider an optional CT in 12 months. Cardiomegaly. Mild thoracic aortic ectasia. Hepatomegaly. Findings suggestive of cirrhosis. Indeterminate 1.3 cm left adrenal nodule, probably benign, consider 12 month follow-up adrenal CT as the patient is at high risk. Lower anterior abdominal wall varices. Body wall edema. Results, which included preliminary report discrepancies reported telephonically to Dr. Man by Dr. Weaver at 6:22 PM on 10/18/2024.
--- NOTE | 2024-11-05 16:24 | PM.DS ---
DS: Admitting Diagnosis Discharge Date 10/19/24 Admitting Diagnosis thoracic radiculopathy DS: Discharge Diagnosis Discharge Diagnosis (1) Status post insertion of spinal cord stimulator: Code(s): Z96.89 - Presence of other specified functional implants Status: Acute (2) Thoracic radiculopathy: Code(s): M54.14 - Radiculopathy, thoracic region Status: Acute DS: Summary Hospital Course Hospital Course: Ms. Luna is an 79-year-old female who underwent outpatient placement of a spinal cord stimulator on October 14 who presented to the emergency overnight on October 18 with significant abdominal pain. She underwent abdominal imaging which was unimpressive. She was suspected to have thoracic radiculopathy and was started on steroids as well as gabapentin. Pain was much better controlled by following day. She was tolerating oral intake and ambulating independently. She was discharged home on October 19. Time Spent with Patient Time attestation: Total time spent providing and/or coordinating discharge services: Discharge Plan Discharge Consulting providers: Glenroy Man; Franchesca Castro; Lan Weaver Discharging Clinician: Erika Mcbride Patient Disposition: Home Activity: other - see discharge instructions Diet: as tolerated Patient Instructions: Antibiotic Form Patient Language: [place] Islander Stand Alone Forms: General Discharge Information, Work/School Release IP Follow-up/Referrals: Erika Mcbride MD [Physician, Neurosurgery] Discharge Medications: New dicyclomine 20 mg tablet 20 mg PO TID PRN (Reason: abdominal pain) Qty: 30 0RF pantoprazole [Protonix] 40 mg tablet,delayed release (DR/EC) 40 mg PO HS 28 Days Qty: 28 0RF gabapentin [Neurontin] 300 mg Capsule 300 mg PO TID 30 Days Qty: 90 3RF dexamethasone 2 mg tablet See Rx Instructions .ROUTE .COMPLEX Qty: 30 0RF Rx Instructions: Take 4mg (two tablets) every 6 hours through October 20 On October 21 and , take 4mg every 8 hours On October 23 and , take 4mg every 12 hours On October 25 and , take 2mg every 12 hours On October 27 and , take 2mg daily Stop on October 29 Continued albuterol 90 mcg/actuation aerosol 90 mcg inhalation Q4-6H PRN (Reason: shortness of breath or wheezing) atenolol 25 mg tablet 25 mg PO BID atorvastatin [Lipitor] 40 mg tablet 40 mg PO QHS Patient Comments: HS bumetanide 1 mg tablet 1 mg PO EVERY OTHER DAY cholestyramine 4 gram powder 4 g PO DAILY Rx Instructions: administer w/meal; avoid other meds within 1hr before or 4-6hr after dose empagliflozin 10 mg tablet 10 mg PO DAILY famotidine 20 mg tablet 20 mg PO Q12H PRN (Reason: indigestion) omega 8-xcf-wjo-fish oil [Fish Oil] 1,000 (120-180) mg capsule 1 cap PO DAILY fluticasone propionate 50 mcg/actuation spray,suspension 1 spray intranasal DAILY Rx Instructions: administer into each nostril losartan 50 mg tablet 75 mg PO DAILY Patient Comments: QAM montelukast 10 mg tablet 10 mg PO QHS ropinirole 2 mg tablet 2 mg PO BID Trelegy Ellipta 100-62.5-25 mcg blister with device 1 inh inhalation DAILY Patient Comments: QAM multivitamin [Daily Multi-Vitamin] Tablet 1 tablet PO DAILY cyanocobalamin (vitamin B-12) 100 mcg tablet 100 mcg PO EVERY OTHER DAY cholecalciferol (vitamin D3) 25 mcg (1,000 unit) capsule 1,000 unit PO EVERY OTHER DAY tizanidine 4 mg tablet 4 mg PO Q8H PRN (Reason: muscle spasticity) Qty: 30 0RF Held warfarin 3 mg tablet 6 mg PO DIRECTED Hold Instructions: Resume on 10/21/24. Patient Comments: 6MG SAT AND SATURDAY AND 4.5MG ALL OTHER DAYS ibuprofen 200 mg capsule 400 mg PO TID PRN (Reason: pain) Hold Instructions: Resume on 10/21/24. Discontinued gabapentin 100 mg capsule 100 mg PO BID Date of admission: 10/18/24 06:04 Primary Care Provider: Sergei,Mirela Admitting Provider: Erika Mcbride Attending physician on admission: Erika Mcbride Condition: Stable
== END 2024-10-19 13:45 | disposition home or self-care (01) ==
LOC: ANHED 06:24 → ANH2MED 06:42
PROVIDERS: Admitting Provider Neurological Surgery; Emergency Provider Emergency Medicine; PCP Family Medicine; Visit Provider Neurological Surgery
DX: M54.14 Radiculopathy, thoracic region (principal); Z96.89 Presence of other specified functional implants; R91.8 Other nonspecific abnormal finding of lung field; E27.9 Disorder of adrenal gland, unspecified; I10 Essential (primary) hypertension; I48.91 Unspecified atrial fibrillation; J44.9 Chronic obstructive pulmonary disease, unspecified; E78.5 Hyperlipidemia, unspecified; Z87.891 Personal history of nicotine dependence; Z79.51 Long term (current) use of inhaled steroids; Z79.01 Long term (current) use of anticoagulants
CPT/HCPCS: 36415; 74174; 80053; 81001; 83605; 83690; 85025; 94640; 96372; 96374; 96375; 96376; 97161; 97165; 99285; A9270; G0378; J1171; J1650; J2405; J2470; J8540; Q9967